=== PATIENT | male | born 1985 | race Caucasian/White ===

== ENCOUNTER 2024-09-19 22:31 | Inpatient (IN) | payer BC, SELFPAY ==
[2024-09-19 17:58] VITALS: BP 150/108
[2024-09-19 18:16] LABS: % Basophils 1.9 % (0-2); % Eosinophils 0.2 % (0-6); % Immature Granulocytes 3.8 % (0-0.5); % Lymphocytes 28.3 % (20.5-51.1); % Neutrophils 57.8 % (42.2-75.2); Absolute Basophils 0.1 10^3/uL (0-0.2); Absolute Immature Granulocytes 0.2 10^3/uL (0-0.05); Absolute Lymphocytes 1.7 10^3/uL (1.2-3.4); Absolute Monocytes 0.5 10^3/uL (0.1-0.6); Absolute Neutrophils 3.4 10^3/uL (1.4-6.5); Hematocrit 36.8 % (39.0-52.0); Hemoglobin 13.7 g/dL (13.0-18.0); Mean Corp Hgb Conc. 37.2 g/dL (33.0-37.0); Mean Corpuscular Hgb 34.2 pg (27.0-31.0); Mean Corpuscular Volume 91.8 fL (80.0-94.0); Mean Platelet Volume 12.3 fL (7.4-10.4); Nucleated Red Blood Cells % 0 % (-); Platelet Count 145 10^3/uL (130-400); Red Blood Cell Count 4.01 10^6/uL (4.70-6.10); Red Cell Dist. Width 17.4 % (11.5-14.5); White Blood Cell Count 5.9 10^3/uL (4.8-10.8)
--- NOTE | 2024-09-19 19:00 | ED.GENMED ---
History of Present Illness
General
Chief Complaint: Alcohol Problem
Time Seen by Provider: 09/19/24 19:00
History of Present Illness
History of Present Illness:
TIME OF INITIAL ENCOUNTER: 7 PM
HPI: I spoke to the mother and sister at bedside for most of the history. The patient has a history of alcoholism. He continues to drink. He works at [employer] and feels that he has been getting bullied there as well. He has been depressed. He
has not been eating or drinking well. He was supposed to see GI last month but did not see them because he had 'too much going on'. They say that they took him to the primary care doctor who did blood work who indicated that he had markedly high
triglycerides and LFTs. He was sent here for further workup. He did drink earlier today.
EXAM:
GENERAL: Short stature, appears somewhat weak, flat/depressed affect
HEENT: Dry oral mucosa, scleral icterus noted
CARDIOVASCULAR: No murmurs, normal heart rate, regular rhythm, No chest wall tenderness
PULMONARY: No respiratory distress, breath sounds are clear and equal
ABDOMEN: Soft with no peritoneal signs, no tenderness
NEUROLOGIC: Good strength all extremities, no coordination deficits
PSYCHIATRIC: Appropriate mental status, normal insight and judgement
EXTREMITIES: Nontender, no edema, moves all extremities equally
SKIN: No rash, no lesions
NUMBER AND COMPLEXITY OF PROBLEMS ADDRESSED AT THE ENCOUNTER
� Chronic conditions affecting care: Alcoholism, diverticular disease, GERD, anxiety/depression
� Acute Exacerbation and/or Progression of Chronic Illness: This is an acute problem
� Differential Diagnosis includes: GERD, alcoholism, alcoholic hepatitis/cirrhosis, impending alcohol withdrawal, pancreatitis
AMOUNT AND/OR COMPLEXITY OF DATA TO BE REVIEWED AND ANALYZED
� I performed an independent evaluation of and my interpretation is:
EKG:
CT:
X-rays:
Laboratory Studies: White count and hemoglobin normal, MCV 92
Other: Ultrasound shows fatty liver
� Review of other/old records: No old records available for review
� Clinical information was obtained by an independent historian: I spoke to the mother and sister at bedside who are very concerned
� Prescriptions/Medications Considered but not given:
� Further testing considered but not performed:
RISK OF COMPLICATIONS AND/OR MORBIDITY OR MORTALITY OF PATIENT MANAGEMENT
� Social determinants of health affecting care: Lives at home
� Discussion with other providers: Hospitalist, Dr. Canales for admission.
� Escalation of care including admission/observation vs risk of discharge considered: Poor po intake, alcoholism. Sister very concerned, took him to PMD, labs abnormal and sent here. On exam, scleral icterus, soft abd, no ascites
on exam. TBIli 7.8, AST 737, ALT 328, AP 328, TG >2625, Lipase 491, Cr 0.6, Na 131, INR pending, alcohol 321, MCV 92.
ANY OTHER UPDATES:
9:30 PM: I reassessed patient. No changes in his clinical condition. I did speak to sister discussed the lab work
Phy Exam
Physical Exam
Physical Exam:
See HPI
Scores
Withdrawal Assessment of Alcohol
Withdrawal Assessment Completed?: No
Course
Orders/Labs/Results
Orders:
Orders
09/19/24 18:06
Complete Blood Count/With Diff Urgent
09/19/24 19:10
Add On- LAB Urgent
Tests Added?: lipase AND alcohol AND lipid panel
0.9% Sodium Chloride 1000 ml [Nss] 1,000 ml IV BOLUS
Famotidine [Pepcid] 20 mg IV NOW STA
Pantoprazole [Protonix IV] 40 mg IV NOW STA
09/19/24 19:11
US Abdomen Complete/Upper Urgent
Comment:
Reason For Exam: jaundice
09/19/24 19:28
Alcohol Urgent
Cardiovascular Evaluation Urgent
Comprehensive Metabolic Panel Urgent
LDL Cholesterol, Direct Urgent
Lipase Urgent
09/19/24 20:56
Prothrombin Time Urgent
Abnormal Lab Results
09/19/24 09/19/24
18:06 19:28
RBC 4.01 L 10^6/uL
(4.70-6.10)
Hct 36.8 L %
(39.0-52.0)
MCH 34.2 H pg
(27.0-31.0)
MCHC 37.2 H g/dL
(33.0-37.0)
RDW 17.4 H %
(11.5-14.5)
MPV 12.3 H fL
(7.4-10.4)
Abs Immat Gran (auto) 0.2 H 10^3/uL
(0-0.05)
Immature Gran % 3.8 H %
(0-0.5)
Sodium 131 L mmol/L
(135-145)
Chloride 90 L mmol/L
(98-107)
Creatinine 0.6 L mg/dL
(0.7-1.3)
Glucose 120 H mg/dl
(70-99)
Calcium 7.5 L mg/dl
(8.4-10.2)
Total Bilirubin 7.8 H mg/dl
(0.2-1.3)
AST 737 H* U/L
(17-59)
ALT 328 H U/L
(0-50)
Alkaline Phosphatase 385 H U/L
(38-126)
Albumin 3.3 L g/dl
(3.5-5.0)
Triglycerides > 2625 H mg/dl
(10-149)
Total Cholesterol 309 H mg/dl
(50-199)
Lipase 491 H U/L
(23-300)
09/19/24 18:06
09/19/24 19:28
Vital Signs
Initial and Last Documented VS:
Initial Vital Signs
Temp Pulse Resp BP Pulse Ox
36.4 C 104 18 150/108 97
09/19/24 17:58 09/19/24 17:58 09/19/24 17:58 09/19/24 17:58 09/19/24 17:58
Last Documented Vital Signs
Temp Pulse Resp BP Pulse Ox
36.4 C 99 17 156/115 95
09/19/24 17:58 09/19/24 19:30 09/19/24 19:30 09/19/24 19:04 09/19/24 19:30
*Critical Care Note
Total Time (30-74mins, 75-104mins- exclusive of procedures): Not Applicable
ED Attending Note
-
Portions of this chart may have been created with voice recognition software.� Occasional wrong word or��sound alike� substitutions may have occurred due to the inherent limitations of voice recognition software.
Discharge Plan
Departure
Patient Disposition: Admit
Date of Disposition: 09/19/24
Time of Disposition: 20:56
Presentation/result/management discussed w/ accepting MD/DO: Hospitalist
Discharge Problem:
Acute alcoholic liver disease
Prescriptions:
No Action
famotidine 20 mg Tablet
20 mg PO BIDPRN PRN (Reason: gerd)
naproxen sodium [Aleve] 220 mg Tablet
440 mg PO BIDPRN PRN (Reason: mild pain)
Referrals:
Diane Grimes DO [Family Provider] -
Interventions
Interventions:
*Risk Screen - Suicide Last Done: 09/19/24 18:03
*General Assessment Last Done: 09/19/24 19:35
*Neglect/Abuse Screening Last Done: 09/19/24 18:03
*ED COVID-19 Vaccine History Last Done: 09/19/24 19:35
ED- Neurological Assessment Last Done: 09/19/24 19:35
ED-Psychological Assessment Last Done: 09/19/24 19:35
Discharge Date and Time
Print Language: JAPANESE
[2024-09-19 19:04] VITALS: BP 156/115
[2024-09-19] MEDS: PROTONIX IV 40 MG IV (19:29)
[2024-09-19] MEDS: NSS 1000 IV (19:30)
[2024-09-19] MEDS: PEPCID 20 MG IV (19:30)
[2024-09-19 19:34] VITALS: BMI 30.3
[2024-09-19 20:07] LABS: ALT (SGPT) 328 U/L (0-50); AST (SGOT) 737 U/L (17-59); Albumin 3.3 g/dl (3.5-5.0); Alkaline Phosphatase 385 U/L (38-126); Blood Urea Nitrogen 13 mg/dl (9-20); Calcium 7.5 mg/dl (8.4-10.2); Carbon Dioxide 28 mmol/L (22-30); Chloride 90 mmol/L (98-107); Estimated Creatinine Clearance 109 ml/min; Glucose 120 mg/dl (70-99); HDL Cholesterol 30 mg/dl; Potassium 4.2 mmol/L (3.5-5.1); Sodium 131 mmol/L (135-145); Total Bilirubin 7.8 mg/dl (0.2-1.3); Total Cholesterol 309 mg/dl (50-199); Total Protein 6.5 g/dl (6.3-8.2); eGFR > 60.00
[2024-09-19 20:18] LABS: Alcohol 321 mg/dl; Lipase 491 U/L (23-300)
[2024-09-19 20:42] LABS: Triglyceride > 2625 mg/dl (10-149)
[2024-09-19 21:00] VITALS: BP 140/95
[2024-09-19 21:10] LABS: LDL Cholesterol, Direct 74 mg/dl
[2024-09-19 21:12] LABS: INR 1.01; PT 13.8 Sec (11.4-14.6)
--- NOTE | 2024-09-19 21:53 | HPS.HSE ---
Family Physician
-
Family Physician: Diane Grimes
Chief Complaint
-
Chronic alcoholism
History of Present Illness
This is a 39-year-old male who denies any significant past medical history except for possible GERD presents to the emergency department from clinic with concern for alcoholic liver disease.
Patient reported that he was being seen in clinic for concern of indigestion. He reports he gets indigestion after meals with some bloating. He also reports chronic postnasal drip and coughing up of phlegm. Otherwise denies any other symptoms.
On that examination he had routine blood test which showed elevated liver enzymes. Patient is known to have significant alcohol intake. The patient is 4 foot 7 inches and weighs 60 kg. He drinks 5 shots of high proof liquor every night to help
him sleep. He reported that he tried to stop within the last year but had tremors and so continued drinking. He said he started drinking about 1 year ago. He denies any other recreational drug use. He denies any other past medical or past
surgical history. Denies any other complaints. He denies feeling dizzy lightheaded. He denies any confusion. He continues to work regularly. He denies any congenital diagnosis.
Corroborating history from family states that the patient has had recent 25 pound weight loss. He was diagnosed with bipolar in the distant past but has not been taking any medications. She states that he always has racing thoughts and has not
slept without alcohol for 3 days. Uses the alcohol to self medicate due to lack of sleep. Family history positive for diabetes in first-degree relatives.
In the emergency department he was afebrile, hypertensive at 150/100 pulse was 99 he was satting 98% on room air. CBC was unremarkable. Chemistries are notable for sodium of 131, otherwise he had elevated AST of 757 ALT of 320 and alk phos of 300.
His triglycerides were elevated to 65 with a lipase of 411. Right upper ultrasound shows hepatomegaly with diffuse fatty liver. No clear cirrhosis ductal dilatation or pancreatitis. There was no ascites.
Medical History
Past Medical History
Past Medical History: Reports Other (Alcohol dependence)
Past Surgical History: Reports Other (vasectomy)
Social History
Tobacco: Non-smoker
Alcohol: Chronic Alcoholic
Drug: None
Personal: Single
Living: With Family
Employment: Employed
Family History
Family History: Other (alcoholism)
Allergies / Home Medications
Allergies reflects when Allergies were last updated in [employer].
Home Medications with original date entered in [employer]
Allergy/Medication List:
Allergies
Allergy/AdvReac Type Severity Reaction Status Date / Time
No Known Allergies Allergy Unverified 09/19/24 18:02
Home Medications
famotidine 20 mg tablet 20 mg PO BIDPRN PRN gerd 09/19/24
naproxen sodium 220 mg tablet (Aleve) 440 mg PO BIDPRN PRN mild pain 09/19/24
Review of Systems
-
Unable to obtain full review of systems at this time due to: Dementia
History Source: Patient
Constitutional: Reports No Symptoms
EENT: Reports No Symptoms
Respiratory: Reports No Symptoms
Cardiac: Reports No Symptoms
Abdomen/GI: Reports Nausea
: Reports No Symptoms
Musculoskeletal: Reports No Symptoms
Skin: Reports No Symptoms
Neurological: Reports No Symptoms
Endocrine: Reports No Symptoms
Hematologic/Lymphatic: Reports No Symptoms
Psych: Reports No Symptoms
Physical Exam
Vital Signs
Vital Signs
Temp Pulse Resp BP Pulse Ox
97.5 F 99 17 156/115 95
09/19/24 17:58 09/19/24 19:30 09/19/24 19:30 09/19/24 19:04 09/19/24 19:30
Physical Exam
General: No Apparent Distress, Conversant and Other (small stature)
HEENT: NormoCephalic, Anicteric, Moist mucous membranes, Atraumatic and PERRLA
Respiratory: Clear
Cardiac: S1/S2 and Tachycardia
Breast: Deferred by me
GI: Soft, Non Tender, Non Distended and Normal Bowel Sounds
Rectal: Deferred by Provider
Genito-urinary: Deferred by me
Musculoskeletal: No Clubbing, No Cyanosis and No Edema
Skin: Warm
Neuro: AO x 3
Hematologic/Lymphatic: No Lymphadenopathy
Psych: Calm
Laboratory Results
-
09/19/24 18:06
09/19/24 19:28
Laboratory Results
PT 13.8 Sec (11.4-14.6) 09/19/24 20:56
INR 1.01 09/19/24 20:56
Total Bilirubin 7.8 mg/dl (0.2-1.3) H 09/19/24 19:28
AST 737 U/L (17-59) H* 09/19/24 19:28
ALT 328 U/L (0-50) H 09/19/24 19:28
Alkaline Phosphatase 385 U/L (38-126) H 09/19/24 19:28
Lipase 491 U/L (23-300) H 09/19/24 19:28
Data Reviewed
-
Ultrasound: Report Reviewed by me
Lab Data: Labs Reviewed by me
Old Records: Reviewed
Impression/Plan
-
IMPRESSION:
Patient sent in from outpatient clinic with abnormal LFTs. History of etoh intake (5-6 shots of liquor (high proof) every night for the last 1 year. He is not in acute withdrawal and has no acute symptoms.
PLAN:
Alcoholic hepatitis/fatty liver -patient likely with alcoholic hepatitis given LFT panel. However cannot rule out, contribution of fatty liver from hyperlipidemia. No diabetes and no history of diabetes. No fulminant liver failure based on
findings thus far. Tbili 7.8, INR 1.01. Discriminant index = 11. No cirrhosis or ascites. Hyponatremia.
- admit to ICU (q1hr fsg)
- trend lfts for now
- etoh withdrawal protocol
- thiamine/folate continue iv fluids
- clear liquid diet for now for likely pancreatitis
- no indication for acute steroids
- GI consultation
- case management for substance rehab
- psych consult
Pancreatitis w/ hypertriglyceridemia - subacute likely without abdominal pain. Multifactorial
- IV fluids, pain control, treat hpypertrig as below
- treatment as below
Hypertryglycerides - Marked hypertrygliceridemia. No diabetes. Likely etoh related.
- check a1c
- insulin gtt to keep trig < 600
- clear liquid diet for now but cessation of alcohol and dietary management critical
- hold statin due to elevated liver enzymes
GI consultation
DVT PPX - hep sq
Code status - full code
[2024-09-19 21:58] VITALS: BP 124/81
[2024-09-19 22:00] VITALS: BP 123/86
[2024-09-20] VITALS (28 sets, daily range): BP systolic 118–151; BP diastolic 81–119; BMI 30.2
[2024-09-20] MEDS: D5/0.9% with KCL 20 MEQ 1000 IV ×2 (02:57→07:30)
[2024-09-20 03:07] LABS: Glucose - Point of Care 120 mg/dl (70-99)
[2024-09-20 03:40] LABS: APTT 31.5 Sec (23.4-35.0)
[2024-09-20 03:45] LABS: Blood Urea Nitrogen 10 mg/dl (9-20); Calcium 7.1 mg/dl (8.4-10.2); Carbon Dioxide 22 mmol/L (22-30); Chloride 89 mmol/L (98-107); Estimated Creatinine Clearance 109 ml/min; Glucose 110 mg/dl (70-99); Lipase 570 U/L (23-300); Magnesium 1.4 mg/dl (1.6-2.3); Potassium 3.8 mmol/L (3.5-5.1); Sodium 127 mmol/L (135-145); eGFR > 60.00
[2024-09-20 04:14] LABS: Triglycerides > 2625 mg/dl (10-149)
[2024-09-20] MEDS: MAGNESIUM SULFATE 50 IV ×2 (04:37→07:38)
[2024-09-20] MEDS: CALCIUM GLUCONATE 130 MG IV (04:37)
[2024-09-20 04:54] LABS: Glucose - Point of Care 159 mg/dl (70-99)
[2024-09-20 05:48] LABS: Glucose - Point of Care 153 mg/dl (70-99)
--- NOTE | 2024-09-20 06:30 | PTCARENOTE ---
Pt received from ED to ICU room 3366, accompanied by sister. Ox3, pleasant, appears to be withdrawn. MSAS 2-3. Steady gait with transfers. NSR, trace LE, pulses palpable. RA, breath sounds clear t/o. +bowel sounds, no BM. Clear yellow/sanjay urine.
Sclera appears slightly jaundice. IVF infusing as ordered, insulin gtt ordered to start after BG >180. Safe environment maintained, call jaquez within reach, pt repositioning self.
[2024-09-20] MEDS: ATIVAN 1 MG IV ×2 (06:38→13:58)
[2024-09-20 06:45] LABS: Glucose - Point of Care 154 mg/dl (70-99)
--- NOTE | 2024-09-20 07:16 | CON.INTV ---
Consultation
Consultation Request
Date/Time Consultation Requested: 09/20/24
Date/Time Consultation Performed: 09/20/24
Performing Provider: Teofilo
Reason for Consultation: ICU
Medical History
-
History of Present Illness:
This is a 39-year-old male w/ history of GERD, bipolar disorder not treated presents to the emergency department from clinic with concern for alcoholic liver disease. Has been complaining of indigestion, bloating, cough, weight loss of 25lbs.
Had routine OP blood test which showed elevated liver enzymes. Patient is known to have significant alcohol intake, reportedly drinks 5 shots of high proof liquor every night to help him sleep. He reported that he tried to stop within the last
year but had tremors and so continued drinking. He said he started drinking about 1 year ago. He denies any other recreational drug use.
In the emergency department, patient is hemodynamically stable. Right upper ultrasound shows hepatomegaly with diffuse fatty liver w/o clear cirrhosis, ductal dilatation, pancreatitis, ascites.
Admitted to ICU for frequent blood work for suspected alcoholic hepatitis.
Past Medical History
Past Medical History: Other (see list below)
Social History
Tobacco: Non-smoker
Alcohol: Daily
Drug: None
Family History
Family History: Reviewed & Not Pertinent
Allergies / Home Medications
Allergies
Allergy/AdvReac Type Severity Reaction Status Date / Time
No Known Allergies Allergy Unverified 09/19/24 18:02
Home Medications
�Medication �Instructions �Recorded �Confirmed �Last Taken �Type
famotidine 20 mg tablet 20 mg PO BIDPRN PRN gerd 09/19/24 09/19/24 09/19/24 History
naproxen sodium 220 mg tablet 440 mg PO BIDPRN PRN mild pain 09/19/24 09/19/24 09/19/24 History
(Aleve)
Review of Systems
-
History Source: Patient
All other systems: Negative unless noted
Vitals / Labs / Diagnostic Testing
Vital Signs
Temp Pulse Resp BP Pulse Ox
97.8 F 105 21 151/104 97
09/20/24 01:06 09/20/24 06:30 09/20/24 06:30 09/20/24 06:00 09/20/24 06:30
Lab Data
09/19/24 18:06
Laboratory Results
09/19/24 09/20/24
20:56 03:15
PT 13.8
INR 1.01
APTT 31.5
Diagnostic Testing:
Physical Exam
-
HEENT: Normocephalic, Anicteric and Moist Mucous Membranes
Cardiovascular: S1/S2 and Regular Rhythm
Respiratory: Clear and Non-Labored Respirations
GI: Soft, Non Distended and Non Tender
Neurology: Awake, Alert, Oriented and No Motor Deficits
Skin: Warm, Dry and Good Color
General: Comfortable and Other (NAD)
Assessment
-
This is a 39-year-old male w/ history of GERD, bipolar disorder not treated presents to the emergency department from clinic with concern for alcoholic liver disease. Has been complaining of indigestion, bloating, cough, weight loss of 25lbs. Had
routine OP blood test which showed elevated liver enzymes. Patient is known to have significant alcohol intake, reportedly drinks 5 shots of high proof liquor every night to help him sleep. He reported that he tried to stop within the last year
but had tremors and so continued drinking. He said he started drinking about 1 year ago. He denies any other recreational drug use. In the emergency department, patient is hemodynamically stable. Right upper ultrasound shows hepatomegaly with
diffuse fatty liver w/o clear cirrhosis, ductal dilatation, pancreatitis, ascites. Admitted to ICU for frequent blood work for suspected alcoholic hepatitis.
Acute alcoholic hepatitis
Hypertriglyceridemia
Possible pancreatitis, elevated lipase but not otherwise noted on imaging
Indigestion, bloating
Subacute cough
Weight loss 25 pounds
Chronic alcohol abuse, 5 drinks per day
At risk for ETOH w/d
Conditions present prior to admission
GERD
Bipolar disorder, untreated
Insomnia
Obesity
Chronic alcohol abuse
Intellectual disability history
Plan
No current signs of metabolic encephalopathy or MS changes/following commands
Psychiatric history noted above including possible bipolar d/o
ETOH abuse noted, on MSAS
Psych eval
Denies pain at this time.
Pain/sedation: add phenobarb taper as he is high risk for w/d
RASS goals: 0
Hemodynamically stable, not requiring pressors.
Cardiac history reviewed--none
ST issue could be related to w/d, dehydration, on IVFs
No prior ECHO for review, can obtain new study
Monitor on telemetry
Oxygen needs: stable on RA
Prior history of lung disease: none, nonsmoker
Supplemental O2 as indicated to maintain sats > 89%
No prior chest imaging, can obtain baseline if symptoms develop
NPO, resume diet when able
At risk for pancreatitis given high TG but not having symptoms/imaging not indicative
Will f/u with CT AP
Continue IVFs, trend LFTs/lipase/TGs
GI eval
Aspiration precautions, HOB > 30 degrees
GI prophylaxis--add H2B given h/o GERD
Creat at baseline, no history of renal disease
Void trials
Follow urine output, critical I/Os
Replete electrolytes as needed
No signs/symptoms suspicious for infectious etiology at this time
Observe off antibiotics for now
Follow fever trend, WBC count
CBC stable, no signs of bleeding or coagulopathy.
DVT prophylaxis as assessed based on risk, including mechanical SCDs
Can transfuse if indicated for Hb <7, plt < 10
INR 1.01
No prior h/o diabetes or thyroid disease
Monitor accuchecks PRN/SS coverage if needed
HbA1c 5.8
Can transfer to floors if doing well today.
Diagnostic Data
Chest X-Ray:
CT Scan:
RUQ US 09/20/24- Hepatomegaly with diffuse fatty infiltration of the liver
Echo:
PFT's:
Reports and relevant images were personally reviewed.
Critical Care time 75 mins -- The patient is admitted for acute critical illness for the treatment of vital organ failure and/or prevention of further life-threatening conditions. Total care includes time spent in review of history, physical exam,
medications, hemodynamic/ventilator parameters, laboratory data, imaging and discussion with house staff, pharmacy, respiratory therapy, line out worker, and nursing. Additional time spent in review of residents plan of care.
[2024-09-20] MEDS: THIAMINE INJECTION 200 MG IV ×2 (07:29→19:34)
[2024-09-20] MEDS: FOLVITE 1 MG PO (07:29)
[2024-09-20] MEDS: HEPARIN 5000 UNITS SC (07:29)
[2024-09-20] MEDS: TRICOR 145 MG PO (07:38)
[2024-09-20 07:55] LABS: Glucose - Point of Care 178 mg/dl (70-99)
--- NOTE | 2024-09-20 08:36 | PTCARENOTE ---
Pt received at 0700, A&Ox3, appears to be withdrawn. MSAS 1-2. Steady gait with transfers. NSR/ST, trace LE, pulses palpable. RA, breath sounds clear t/o. +bowel sounds, no BM. Sclera reported to be slightly jaundice. IVF infusing as ordered,
insulin gtt ordered to start after BG >180. Safe environment maintained, call jaquez within reach, pt repositioning self.
[2024-09-20 09:11] LABS: Glycohemoglobin (HgbA1c) 5.8 % (4.0-5.6)
[2024-09-20 09:44] LABS: Glucose - Point of Care 140 mg/dl (70-99)
--- NOTE | 2024-09-20 10:13 | W.PN.HOSP.TC ---
Today's Communication/Plan
-
See PN
Assessment / Plan
Assessment / Plan
39yo M with PMHx of alcohol abuse brought by his family 2/2 concern for elevated LFT and triglicerides on outpatient blood test. Managed for alcohol withdrawal and acute alcoholic pancreatitis
A/P:
#Acute alcoholic pancreatitis
#Triglyceridemia 2/2 alcohol intake
#Bilirubinemia
#Transaminitis 2/2 acute alcoholic pancreatitis
#Elevated alk.phos 2/2 acute alcoholic pancreatitis
No gall stones on US, CBD WNL
Insulin drip, fenofibrate, low fat diet. serial triglycerides
Counceled on alcohol cessation
IVF
GI consult
MELD 3.0 on admission - 18
follow LFT
CM for [facility]ARES
#Hypocalcemia
#Hyponatremia
#hypomagnesemia
2/2 poor oral intake
hydrate
serial electrolytes, replete as needed
#Alcohol abuse with withdrawal
thiamine/folate
phenobarb taper
MSAS protocol
watch for DT
DVT ppx hep
Full code
I have spent at least 59min reviewing the chart, test results, communication with consultants and direct patient care
Anticipated Discharge: > 48 hours
Subjective/Interval History
-
Date of Service: September 20, 2024
Objective Data
-
Labs:
Laboratory Results
09/20/24 09/20/24 09/20/24
02:52 03:15 07:27
APTT 31.5
Sodium 127 L Cancelled
Potassium 3.8 Cancelled
Chloride 89 L Cancelled
Carbon Dioxide 22 Cancelled
BUN 10 Cancelled
Creatinine 0.6 L Cancelled
Glucose 110 H Cancelled
Calcium 7.1 L Cancelled
Total Bilirubin Cancelled
AST Cancelled
ALT Cancelled
Alkaline Phosphatase Cancelled
09/20/24 09/20/24 09/20/24
08:32 09:20 12:00
APTT
Sodium Cancelled Pending Pending
Potassium Cancelled Pending Pending
Chloride Cancelled Pending Pending
Carbon Dioxide Cancelled Pending Pending
BUN Cancelled Pending Pending
Creatinine Cancelled Pending Pending
Glucose Cancelled Pending Pending
Calcium Cancelled Pending Pending
Total Bilirubin Cancelled Pending
AST Cancelled Pending
ALT Cancelled Pending
Alkaline Phosphatase Cancelled Pending
09/20/24 09/20/24
16:00 20:00
APTT
Sodium Pending Pending
Potassium Pending Pending
Chloride Pending Pending
Carbon Dioxide Pending Pending
BUN Pending Pending
Creatinine Pending Pending
Glucose Pending Pending
Calcium Pending Pending
Total Bilirubin
AST
ALT
Alkaline Phosphatase
Vital Signs:
Vital Signs
Temp Pulse Resp BP Pulse Ox
98.4 F 105 21 151/104 96
09/20/24 06:00 09/20/24 06:30 09/20/24 06:30 09/20/24 06:00 09/20/24 08:16
I&O
09/19/24 09/20/24 09/21/24
06:59 06:59 06:59
Intake Total 1050 / 1050
Output Total 450 / 450
Balance 600 / 600
Review of Systems
-
History Source: Patient
All other systems: Reviewed and negative
Physical Exam
-
General: Comfortable and Conversant
HEENT: Normocephalic and Other (yellow conjuctiva)
Respiratory: Clear to Auscultation
Cardiac: Regular Rhythm and Tachycardic
GI: Soft, Nontender and Nondistended
Musculoskeletal: No Clubbing, No Cyanosis and No Edema
Skin: Jaundice
Neuro: Awake, Alert, Oriented, AO x 3 and Tremors
Psych: Calm
--- NOTE | 2024-09-20 10:23 | CON.GI ---
Addendum entered and electronically signed by Emily Herndon MD 09/20/24 18:17:
I saw and examined the patient.
The SHARPLES MACHINE OPERATOR or PA's note was reviewed and I agree with the note.
Comment:39-year-old male with history of alcohol abuse, bipolar disorder, recent diverticulitis April 2024, who currently is living with his sister presenting with nausea and vomiting episodes which is going on for several months now but more so
recently and poor p.o. intake. Denies any abdominal pain, trouble swallowing but reports globus sensation. As per sister last about 25 pounds in the last few months. He does have GI at [facility] who did colonoscopy after his diverticulitis
episode in April 2024 and reports being negative. EGD not done at that time.
Significant alcohol use with at least 5 shots of alcohol daily.
On exam, tachycardic and hypertensive suggesting possible DTs.
Labs show hyponatremia, hypokalemia and LFTs showing elevated total bilirubin at 8.7, AST of 737, ALT of 328 and alk phos of 385 with triglycerides more than 2500. Lipase of 491. Blood alcohol level of 321 on admission.
Abdominal ultrasound showing diffuse fatty liver with hepatomegaly and subsequent CT scan also showing mild stranding of the retroperitoneal fat adjacent to the pancreatic tail and severe fatty infiltration of the liver.
-History of alcohol abuse currently being treated for DTs
Continue management of DTs per medical team/psychiatry
Discriminant function of 13 today
Will continue to monitor LFTs
Agree with continuing PPI with history of recurrent vomiting, okay for clear liquid diet and advance as tolerated.
-Mild elevation in lipase and CT showing mild stranding adjacent to the pancreatic tail
Significant elevation in triglycerides
This is risk factor for pancreatitis apart from his underlying alcohol abuse.
Need management of triglyceride levels as well.
-Hyponatremia, hypokalemia
Currently getting hypertonic saline per nephrology.
-Discussed with patient and sister regarding following up with psychiatry for his bipolar disorder and alcohol abuse
-After discharge, he will need follow-up with outpatient GI at [facility].
Original Note:
Consultation
-
Date/Time Consultation Requested: 09/20/24214
Date/Time Consultation Performed: 09/20/24 1130
Requesting Provider: Davina Canales MD
Performing Provider: TONY French, Emiyl Herndon MD
Reason for Consultation: ETOH abuse, increased LFT's
Medical History
Chief Complaint / HPI
Chief Complaint: abdominal pain with vomiting
History of Present Illness:
Pt is a 39yo with hx alcohol dependency, GERD, diverticulitis, colon polyps, and bipolar disorder. In review with patient and sister patient is noted with special needs and some learning disability. He with prior admission [facility] for psych
care about 8 years ago. He followed with a therapist but when then therapist left he did not transition to new provider. 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 He would come home from work and
drink several shot to try to sleep. He has been getting some care from PCP with attempt to take Trazadone for sleep but has had a difficulty time finding psych provider in network. He has also had ongoing GI issues with initial diverticulitis
several months ago. He did have follow up colonoscopy at [facility] with Kendall with noted polyp. Per family also concern for increased ETOH use and depression. He has been sleeping a lot and actually took leave of absence in Mid August with
stress. He admits to ETOH use day prior to admission. Family also concerned for issue with nausea, dysphagia with feeling of . increased phlegm in throat and vomiting that seem to be getting worse. Sister did schedule OP GI follow up but pt did
not go to visit. Pt has had 25 lbs wt loss in last few months.
Pt does currently deny odynophagia, hematemesis, abdominal pain, diarrhea, constipation or rectal bleeding. On admission hbg 13,7, platelets 145, Na 131, glucose 120 with hbgA1c 5.8, bili 8.7, AST 737, ALT 328, alk phos 385, albumin 3.3,
triglycerides >2625, and lipase 491. Pt is also noted with tachycardia with concern for ETOH withdrawal with ETOH level 321 on admission. 09/19 US Hepatomegaly with diffuse fatty infiltration of the liver. + PRN Naproxen with occasional use for
hip pain.
Past Medical History
Past Medical History: GERD, Psychiatric (bipolar disorder with hx depression ) and Other (ETOH dependence, hypertrigylceridemia, diverticulitis, colon polyps )
Past Surgical History: Other (vastectomy)
Social History
Tobacco: Non-Smoker
Alcohol: Daily (multiple shots daily)
Drug: None
Living: With Family
Employment: Employed (but currently out on disability )
Family History
Family History: Other (father with kidney CA no family hx colon CA)
Allergies / Home Medications
Allergy/AdvReac Type Severity Reaction Status Date / Time
No Known Allergies Allergy Unverified 09/19/24 18:02
�Medication �Instructions �Recorded
famotidine 20 mg tablet 20 mg PO BIDPRN PRN gerd 09/19/24
naproxen sodium 220 mg tablet 440 mg PO BIDPRN PRN mild pain 09/19/24
(Aleve)
Review of Systems
-
History Source: Patient
Constitutional: Reports Weight Loss, Fatigue and Sleep Disturbance
EENT: Reports No Symptoms
Respiratory: Reports No Symptoms
Abdomen/GI: Reports Abdominal Pain, Nausea, Vomiting and Other (dysphagia )
: Reports No Symptoms
Musculoskeletal: Reports No Symptoms
Skin: Reports No Symptoms
Neurological: Reports Weakness
Endocrine: Reports No Symptoms
Hematologic/Lymphatic: Reports No Symptoms
Vital Signs
Temp Pulse Resp BP Pulse Ox
98.4 F 105 21 151/104 96
09/20/24 06:00 09/20/24 06:30 09/20/24 06:30 09/20/24 06:00 09/20/24 08:16
Physical Exam
Exam
General: Other (short stature noted lying in bed with some withdrawn behavior but does answer some questions and occasional small amount of mucous emesis )
HEENT: Normocephalic and Anicteric
Respiratory: Clear
Cardiac: Other (tachy )
GI: Soft, Non Distended and Tender
Musculoskeletal: No Clubbing
Skin: Warm and Dry
Neuro: Awake, Alert and AO x 3
Psych: Calm
Results
WBC 5.9 10^3/uL (4.8-10.8) 09/19/24 18:06
Hgb 13.7 g/dL (13.0-18.0) 09/19/24 18:06
Hct 36.8 % (39.0-52.0) L 09/19/24 18:06
MCV 91.8 fL (80.0-94.0) 09/19/24 18:06
Plt Count 145 10^3/uL (130-400) 09/19/24 18:06
Absolute Neuts (auto) 3.4 10^3/uL (1.4-6.5) 09/19/24 18:06
PT 13.8 Sec (11.4-14.6) 09/19/24 20:56
INR 1.01 09/19/24 20:56
APTT 31.5 Sec (23.4-35.0) 09/20/24 03:15
Sodium Cancelled 09/20/24 08:32
Potassium Cancelled 09/20/24 08:32
Chloride Cancelled 09/20/24 08:32
Carbon Dioxide Cancelled 09/20/24 08:32
BUN Cancelled 09/20/24 08:32
Creatinine Cancelled 09/20/24 08:32
Calcium Cancelled 09/20/24 08:32
Total Bilirubin Cancelled 09/20/24 08:32
AST Cancelled 09/20/24 08:32
ALT Cancelled 09/20/24 08:32
Alkaline Phosphatase Cancelled 09/20/24 08:32
Lipase 570 U/L (23-300) H 09/20/24 02:52
Diagnostic Image Results:
09/19/24 US abdomen
IMPRESSION: Hepatomegaly with diffuse fatty infiltration of the liver
Prior GI Procedures:
EGD: none
Colonoscopy: recent with colon polyps s/p colonoscopy
Assessment / Plan
-
Pt is a 39yo with hx alcohol dependency, GERD, diverticulitis, colon polyps, and bipolar disorder. In review with patient and sister patient is noted with special needs and some learning disability. He with prior admission to [facility] for
psych care about 8 years ago. He followed with a therapist but when then therapist left he did not transition to new provider. 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
work and drink several shot to try to sleep. He has been getting some care from PCP with attempt to take Trazadone for sleep but has had a difficulty time finding psych provider in network. He has also had ongoing GI issues with initial
diverticulitis several months ago. He did have follow up colonoscopy at [facility] with Kendall with noted polyp. Per family also concern for increased ETOH use and depression. He has been sleeping a lot and actually took leave of absence in Mid
August with stress. He admits to ETOH use day prior to admission. Family also concerned for issue with nausea, dysphagia with feeling of . increased phlegm in throat and vomiting that seem to be getting worse. Sister did schedule OP GI follow
up but pt did not go to visit. Pt has had 25 lbs wt loss in last few months. On admission hbg 13,7, platelets 145, Na 131, glucose 120 with hbgA1c 5.8, bili 8.7, AST 737, ALT 328, alk phos 385, albumin 3.3, triglycerides >2625, and lipase 491.
Pt is also noted with tachycardia with concern for ETOH withdrawal with ETOH level 321 on admission. 09/19 US Hepatomegaly with diffuse fatty infiltration of the liver. + PRN Naproxen with occasional use for hip pain.
-ETOH abuse
-ETOH withdrawal
-nausea/vomiting with globus sensation
-elevated LFT's
-elevated lipase
-hyponatremia
-hypocalcemia/hypomagnesemia
-hypertriglyceridemia
-fatty liver per imaging
-recent diverticulitis with follow up colonoscopy with polyps
-depression hx bipolar disorder
-GERD
PLAN:
Etiology of symptoms with current concern for ETOH withdrawal with daily up until admission
cont withdrawal protocol per medical team
counseled on need to quit
agree with CT for further eval of pancreas and vomiting
discussed with pt and family eventual need for EGD but not current candidate with active withdrawal in absence of Bleeding and instability
trend LFT's with elevated lipase likely ETOH hepatitis/pancreatitis but marked elevated triglycerides
DF 11.5 based on admission labs no role for steroids - repeat in AM to ensure stability
cont rx per medical team for hypertriglyceridemia
cont PPI
cont electrolyte replacement
cont IVF 150ml/hr
ok for clear diet advance as tolerated
agree with psych eval and stressed need for continued OP care
OP follow up with Dr. Argueta at [facility] his primary GI MD
-
-
Thank you for consultation and allowing me to participate in the patient's care. Please call the dynamics ax solution architect GI physician during the after hours with any questions or concerns.
[2024-09-20 10:27] LABS: ALT (SGPT) 279 U/L (0-50); AST (SGOT) 742 U/L (17-59); Albumin 2.8 g/dl (3.5-5.0); Alkaline Phosphatase 340 U/L (38-126); Blood Urea Nitrogen 6 mg/dl (9-20); Calcium 7.4 mg/dl (8.4-10.2); Carbon Dioxide 22 mmol/L (22-30); Chloride 91 mmol/L (98-107); Direct Bilirubin 7.1 mg/dl (0.0-0.4); Estimated Creatinine Clearance 109 ml/min; Glucose 130 mg/dl (70-99); Magnesium 2.8 mg/dl (1.6-2.3); Potassium 4.2 mmol/L (3.5-5.1); Sodium 127 mmol/L (135-145); Total Bilirubin 8.5 mg/dl (0.2-1.3); Total Protein 5.6 g/dl (6.3-8.2); eGFR > 60.00
[2024-09-20] MEDS: PHENOBARBITAL 65 MG IV ×3 (10:29→22:36)
[2024-09-20] MEDS: NSS 1000 IV (11:06)
[2024-09-20] MEDS: OMNIPAQUE 50 ML PO (11:16)
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
[2024-09-20 11:55] LABS: Triglycerides > 2625 mg/dl (10-149)
--- NOTE | 2024-09-20 12:00 | PTCARENOTE ---
Pt resting comfortably. Trending labs. MSAS 1
[2024-09-20] MEDS: CALCIUM GLUCONATE 100 IV (12:56)
--- NOTE | 2024-09-20 14:00 | PTCARENOTE ---
MSAS 8, ativan 1mg given. Sister at bedside
[2024-09-20 14:27] LABS: Amphetamines Negative (Negative); Barbiturates Negative (Negative); Benzodiazepines Positive (Negative); Buprenorphine Negative (Negative); Cocaine Negative (Negative); Marijuana Negative (Negative); Methadone Negative (Negative); Methamphetamines Negative (Negative); Opiates Negative (Negative); Phencyclidine Negative (Negative); Tricyclic Antidepressants Negative (Negative)
[2024-09-20 14:38] LABS: Urine Sodium 152 mmol/L (30-90)
[2024-09-20 14:46] LABS: Fentanyl, Urine Negative (Negative)
[2024-09-20 14:55] LABS: Osmolality Urine 436 mOsm/kg (300-900)
[2024-09-20 15:35] LABS: Urine Albumin Negative (Neg - Trace); Urine Bilirubin 1+ (Negative); Urine Character Clear (Clear); Urine Color Yellow; Urine Glucose Negative (Negative); Urine Ketone Negative (Negative); Urine Leukocyte Negative (Negative); Urine Nitrite Negative (Negative); Urine Occult Blood Negative (Negative); Urine Specific Gravity 1.015 (<1.030); Urine Urobilinogen 1+ (Neg - 1+); Urine pH 6.5 (5.0-9.0)
--- NOTE | 2024-09-20 15:56 | CON.INTV ---
Consultation
Consultation Request
Date/Time Consultation Requested: 09/20/2024, 2:42
Date/Time Consultation Performed: 09/20/2024 8:00
Requesting Provider: Leo Redmond CRNP
Performing Provider: Dr. Nataliya Red
Reason for Consultation: Alcoholic Hepatitis/ fatty liver/ hypertriglyceridemia
Medical History
-
History of Present Illness:
Pt is a 39yo with past medical history of GERD, untreated bipolar disorder, alcohol use disorder. He currently drinks 5 shots a day of hard liquor every single day and has been doing so for the past couple of years. His family is concerned with his
increased usage of alcohol use and what he describes as being depressed. The last drink he had was the day before his admission. Pt has had 25 lbs wt loss in last 3-4 months. He went to his primary care doctor who informed him his lab results
showed increased triglycerides and elevated transaminases, then informed him to present to the ED. Labs on admission: hbg 13,7, platelets 145, Na 131, glucose 120 with hbgA1c 5.8, bili 8.7, AST 737, ALT 328, alk phos 385, albumin 3.3, triglycerides
>2625, and lipase 491. ETOH level 321 on admission.Right upper ultrasound shows hepatomegaly with diffuse fatty liver w/o clear cirrhosis, ductal dilatation, pancreatitis, ascites. Patient was started on MSAS protocol, and then transferred to the
ICU because of concern of hypertriglyceridemia and possible alcoholic hepatitis.
Past Medical History
Past Medical History: GERD and Psychiatric (Depression, Bipolar untreated, intellectual disability, chronic alcohol abuse, insomnia)
Past Surgical History: None (Vasectomy)
Social History
Tobacco: Non-smoker
Alcohol: Daily
Drug: None
Personal: Single
Living: With Family
Employment: Employed
Family History
Family History: Reviewed & Not Pertinent
Allergies / Home Medications
Allergies
Allergy/AdvReac Type Severity Reaction Status Date / Time
No Known Allergies Allergy Unverified 09/19/24 18:02
Home Medications
�Medication �Instructions �Recorded �Confirmed �Last Taken �Type
famotidine 20 mg tablet 20 mg PO BIDPRN PRN gerd 09/19/24 09/19/24 09/19/24 History
naproxen sodium 220 mg tablet 440 mg PO BIDPRN PRN mild pain 09/19/24 09/19/24 09/19/24 History
(Aleve)
Review of Systems
-
History Source: Patient and Family
Constitutional: Fever (Negative), Weight Loss, Fatigue, Sleep Disturbance and Chills (None)
Respiratory: Cough (Negative)
Cardiac: Chest Pain (Negative), Diaphoresis (Negative) and Palpitations (Negative)
Abdomen/GI: Abdominal Pain (Negative), Nausea (Negative), Vomiting (Negative), Diarrhea (Negative) and Constipated (Negative)
: Frequency (Negative)
Musculoskeletal: Joint Pain (Negative)
Neuro: Dizzy (Negative) and Headache (Negative)
Vitals / Labs / Diagnostic Testing
Vital Signs
Temp Pulse Resp BP Pulse Ox
97.3 F 99 21 138/91 99
09/20/24 11:45 09/20/24 11:30 09/20/24 11:30 09/20/24 11:02 09/20/24 11:30
Lab Data
09/19/24 18:06
09/20/24 20:00
Laboratory Results
09/19/24 09/20/24
20:56 03:15
PT 13.8
INR 1.01
APTT 31.5
Diagnostic Testing:
Physical Exam
-
Cardiovascular: S1/S2, Regular Rhythm and Other (Tachycardic)
Respiratory: Clear
GI: Soft, Non Distended, Non Tender and Normal Bowel Sounds
Neurology: Awake, Alert, Oriented and AO x 3
Skin: Warm and Dry
Assessment
-
Patient is a 39-year-old male with a past medical history of GERD, insomnia, chronic alcohol abuse, insomnia, depression, untreated bipolar disorder that presents to the ICU for possible concerns of alcoholic hepatitis, hypertriglyceridemia. He is
currently on Msas protocol, fenofibrate, IV fluids, currently monitoring for symptoms of alcohol withdrawal and symptoms of alcohol hepatitis.
Neuro:
-Neuroexam is normal patient is not exhibiting any signs of anxiety, shaking, seizures
- RASS score is 0
- MSAS score is 1
- Consult psychiatry because patient has history of depression and bipolar untreated
- Continue his MSAS protocol to prevent Wernicke Korsakoff and neurological withdrawal symptoms such as anxiety, shaking, seizures, delirium tremens
- Continue to monitor for hemodynamic instability
Cardiovascular:
- patient has no previous cardiac history
- Pertinent findings on exam were tachycardia
- Ordered an echo because of his prolonged history of alcohol use, to structural aspect of heart, left ventricular ejection fraction, systolic and diastolic filling patterns
- Continue to monitor blood pressure and heart rate on telemetry
Respiratory:
- No previous respiratory history
- Lung exam was clear to auscultation
- is on room air and is saturating 99%
GI:
- Patient is on clear liquid diet, continue to observe
- Patient should be placed on famotidine 20 mg for GI prophylaxes because of weight loss, history of naproxen use, alcohol use, and previous history of GERD
- Consult gastroenterology
- Continue to trend his transaminases and lipase levels
- Continue on Fibrate to decrease triglyceride level and trend levels
Renal:
- Creatinine is slightly decreased at 0.6, continue to observe, probably an indication of decreased muscle mass
- His sodium level is 127, continue IV fluids 0.9 NACl, and continue to trend the sodium, most likely hypovolemic hyponatremic
- Potassium is 4.2 and normal, continue to trend
- Magnesium is decreased and levels are repleted, continue to trend
ID:
- No fever, WBC count is 5.9 and normal, patient is afebrile
Heme-onc:
- DVT prophylaxes is lovenox 40
- No evidence of macrocytic anemia, Hgb is 13.7 and MCV is 91.8 and normal
- Platelet count is 145 and normal, continue to observe the platelet count.
Endocrine:
- No previous history of diabetes, added a hemoglobin A1c as add on to his labs today
- Ordered a tsh to determine thyroid function
Data Reviewed
-
Ultrasound: Report reviewed by me and Discussed with Physician
Medical Tests (Nuc Med, Echo etc): Report reviewed by me and Discussed with Physician
Labs: Labs reviewed by me and Discussed with Physician
[2024-09-20 16:10] LABS: Albumin 2.8 g/dl (3.5-5.0); Alkaline Phosphatase 377 U/L (38-126); Blood Urea Nitrogen 4 mg/dl (9-20); Calcium 7.8 mg/dl (8.4-10.2); Carbon Dioxide 17 mmol/L (22-30); Chloride 89 mmol/L (98-107); Estimated Creatinine Clearance 109 ml/min; Glucose 207 mg/dl (70-99); Potassium 3.4 mmol/L (3.5-5.1); Sodium 122 mmol/L (135-145); Total Bilirubin 9.4 mg/dl (0.2-1.3); Total Protein 5.6 g/dl (6.3-8.2); eGFR > 60.00
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
[2024-09-20 16:28] LABS: AST (SGOT) 813 U/L (17-59)
[2024-09-20 16:29] LABS: ALT (SGPT) 283 U/L (0-50); Lipase 579 U/L (23-300)
--- NOTE | 2024-09-20 16:36 | W.PN.UPDATE ---
Update Note
Progress Note Update
Challenging situation with possible mild pancreatitis on CT, elevated lipase, triglyceridemia and now significant hyponatremia after IVF. Started 3%NS with FR as discussed with nephrology to correct hyponatremia. will follow q4h BMP
[2024-09-20] MEDS: SODIUM CHLORIDE 3% 250 IV (16:56)
--- NOTE | 2024-09-20 17:00 | W.CON.NEPH ---
Consultation
-
Date/Time Consultation Requested: September 20, 2024 4 PM
Date/Time Consultation Performed: September 20, 2024 5 PM
Requesting Provider: Dr. Longoria
Performing Provider: Dr. Strange
Reason for Consultation: Hyponatremia
Medical History
-
Chief Complaint: Alcoholism
History of Present Illness:
This is a 39-year-old gentleman who has alcoholism which started about 1 year ago. He was brought in because of concern that his alcoholism was worsening. He was having indigestion bloating. He was also noted to have a 25 pound weight loss over
time. His sodium was slightly low at the time of admission but over the next several days his sodium has now fallen to 122 and we are asked to assist with management of the hyponatremia. He also has significantly elevated triglyceride levels as
well as elevated LFTs.
Past Medical History
Alcoholism
Vasectomy
Social History
Tobacco: Non-Smoker
Alcohol: Chronic Alcoholic
Family History
Family History: Not Pertinent
Allergies / Home Medications
Allergy/AdvReac Type Severity Reaction Status Date / Time
No Known Allergies Allergy Unverified 09/19/24 18:02
�Medication �Instructions �Recorded �Confirmed �Type
famotidine 20 mg tablet 20 mg PO BIDPRN PRN gerd 09/19/24 09/19/24 History
naproxen sodium 220 mg tablet 440 mg PO BIDPRN PRN mild pain 09/19/24 09/19/24 History
(Aleve)
Review of Systems
-
Mild indigestion
All other systems: Negative unless noted
Physical Exam
Vital Signs
Vital Signs
Temp Pulse Resp BP Pulse Ox
97.3 F 99 21 138/91 99
09/20/24 11:45 09/20/24 11:30 09/20/24 11:30 09/20/24 11:02 09/20/24 11:30
Lab Results
WBC 5.9 10^3/uL (4.8-10.8) 09/19/24 18:06
RBC 4.01 10^6/uL (4.70-6.10) L 09/19/24 18:06
Hgb 13.7 g/dL (13.0-18.0) 09/19/24 18:06
Hct 36.8 % (39.0-52.0) L 09/19/24 18:06
Plt Count 145 10^3/uL (130-400) 09/19/24 18:06
eGFR Cancelled 09/20/24 20:00
Phosphorus 3.0 mg/dl (2.5-4.5) 09/20/24 02:52
Albumin 2.8 g/dl (3.5-5.0) L 09/20/24 15:43
Laboratory Tests
09/19/24 09/20/24 09/20/24
19:28 09:20 13:54
Sodium 131 L 127 L
Total Bilirubin
AST
ALT
Albumin
Triglycerides
Urine Osmolality 436
Urine Creatinine 48.400
Urine Sodium 152 H
09/20/24
15:43
Sodium
Total Bilirubin 9.4 H
AST 813 H*
ALT 283 H
Albumin 2.8 L
Triglycerides 1943 H
Urine Osmolality
Urine Creatinine
Urine Sodium
CT abdomen and pelvis on September 20, 2024 with IV contrast
IMPRESSION:
Pancreas itself has a normal CT appearance. There is mild stranding of the retroperitoneal fat adjacent to the pancreatic tail. This could be related to mild or early acute pancreatitis.
Severe fatty infiltration of liver, which is enlarged
Mild muscular hypertrophy of the wall the sigmoid colon, suggesting previous diverticulitis.
Physical Exam
Patient is awake alert oriented and in no distress. Mood and affect were pleasant, insight and judgment were good. Pupils are equal round and reactive to light, extraocular movements are intact, sclera were anicteric. Hearing was normal, ears and
nose are intact. Oropharynx was clear. Neck was supple with trachea midline and no thyromegaly. Heart was regular rate and rhythm without rubs. Lower extremities without edema. Lungs were clear to auscultation bilaterally and with normal
excursion. Abdomen was soft, nontender, with normal active bowel sounds, and no hepatosplenomegaly. Skin was without rash and with normal turgor.
Data Reviewed
-
CT Scan: Report Reviewed by me
Labs: Labs Reviewed by me
Old Records: Requested
Assessment/Plan
-
Assessment
Alcohol abuse
Alcohol withdrawal
Elevated LFTs/hepatitis
Elevated lipase
Hypertriglyceridemia
Nausea/vomiting
Fatty liver
Hyponatremia
Elevated blood pressure
Plan
Elevated urine osmolality, elevated urine sodium suggests an excess ADH state
There is likely some effect on the sodium level from the hypertriglyceridemia as well, though not enough to negate the apparent hyponatremia
He would otherwise be a candidate for Samsca but given his elevated LFTs and liver disease this cannot be used
Hypertonic saline at 20 mL/h given his total body water.
Serial BMP
Fluid restriction 40 ounces
[2024-09-20 17:02] LABS: Triglycerides 1943 mg/dl (10-149)
[2024-09-20] MEDS: KLOR-CON 40 MEQ PO (17:31)
[2024-09-20] MEDS: LOVENOX 40 MG SC (17:32)
[2024-09-20] MEDS: NIASPAN TIME RELEASE 250 MG PO (19:34)
[2024-09-20 21:55] LABS: Blood Urea Nitrogen 2 mg/dl (9-20); Calcium 7.7 mg/dl (8.4-10.2); Carbon Dioxide 22 mmol/L (22-30); Chloride 93 mmol/L (98-107); Estimated Creatinine Clearance 109 ml/min; Glucose 158 mg/dl (70-99); Potassium 4.1 mmol/L (3.5-5.1); Sodium 125 mmol/L (135-145); eGFR > 60.00
[2024-09-20 22:04] LABS: Triglycerides 1225 mg/dl (10-149)
[2024-09-20] MEDS: NOVOLIN R INSULIN INFUSION 100 IV (22:34)
[2024-09-20] MEDS: NSS (PRESERVATIVE FREE) 8 ML IV (22:36)
[2024-09-20] MEDS: PEPCID 20 MG IV (22:37)
[2024-09-20 22:44] LABS: Glucose - Point of Care 133 mg/dl (70-99)
--- NOTE | 2024-09-20 22:57 | W.PN.UPDATE ---
Update Note
Progress Note Update
09/20/24
2199- Patients repeat bmp labs reviewed with Dr. Sommer, titrator. Na 125 from 122, continues to be hypernatremic. Will recheck bmp in 4 hours and hold hypertonic 3% saline if sodium is 127 and will recheck serum osmolality. Will initiate
insulin gtt at 1u/hr for hypertriglyceridemia, unable to initiate D5 or 10 due to persistent hypernatremia will consider if sodium improves. Follow repeat labs q4hrs.
[2024-09-20 23:40] LABS: Glucose - Point of Care 116 mg/dl (70-99)
[2024-09-21] VITALS (16 sets, daily range): BP systolic 106–154; BP diastolic 77–107; BMI 30.3
[2024-09-21 00:39] LABS: Glucose - Point of Care 104 mg/dl (70-99)
--- NOTE | 2024-09-21 00:50 | PTCARENOTE ---
Pt received at 19:00, initial assessment as documented. 21:00 labs collected, FORGING PRESS OPERATOR notified of results--discussed with nephrology. Pt started on insulin gtt at 1unit/hr, 3% NaCl continues as ordered. q1 BG ordered and completed. Safe environment
maintained, call jaquez within reach.
[2024-09-21 01:43] LABS: Glucose - Point of Care 130 mg/dl (70-99)
[2024-09-21 01:58] LABS: Osmolality Serum 270 mOsm/kg (275-300)
[2024-09-21 02:33] LABS: Blood Urea Nitrogen 2 mg/dl (9-20); Calcium 7.9 mg/dl (8.4-10.2); Carbon Dioxide 23 mmol/L (22-30); Chloride 97 mmol/L (98-107); Estimated Creatinine Clearance 109 ml/min; Glucose 101 mg/dl (70-99); Potassium 3.7 mmol/L (3.5-5.1); Sodium 127 mmol/L (135-145); eGFR > 60.00
[2024-09-21 02:45] LABS: Glucose - Point of Care 125 mg/dl (70-99)
[2024-09-21 03:14] LABS: Triglycerides 1170 mg/dl (10-149)
[2024-09-21 03:41] LABS: Glucose - Point of Care 110 mg/dl (70-99)
[2024-09-21 04:46] LABS: Glucose - Point of Care 103 mg/dl (70-99)
[2024-09-21 05:41] LABS: Glucose - Point of Care 93 mg/dl (70-99)
[2024-09-21 05:48] LABS: INR 0.98; PT 13.5 Sec (11.4-14.6)
[2024-09-21 05:55] LABS: % Basophils 0.8 % (0-2); % Eosinophils 0.4 % (0-6); % Immature Granulocytes 4.4 % (0-0.5); % Lymphocytes 24.4 % (20.5-51.1); % Monocytes 7.3 % (1.7-9.3); % Neutrophils 62.7 % (42.2-75.2); Absolute Immature Granulocytes 0.2 10^3/uL (0-0.05); Absolute Lymphocytes 1.2 10^3/uL (1.2-3.4); Absolute Monocytes 0.4 10^3/uL (0.1-0.6); Absolute Neutrophils 3.2 10^3/uL (1.4-6.5); Mean Corp Hgb Conc. 34.4 g/dL (33.0-37.0); Mean Corpuscular Volume 96.1 fL (80.0-94.0); Mean Platelet Volume 11.9 fL (7.4-10.4); Nucleated Red Blood Cells % 0.4 % (-); Platelet Count 82 10^3/uL (130-400); Red Blood Cell Count 3.33 10^6/uL (4.70-6.10); Red Cell Dist. Width 17.4 % (11.5-14.5); White Blood Cell Count 5.1 10^3/uL (4.8-10.8)
[2024-09-21 06:30] LABS: ALT (SGPT) 271 U/L (0-50); AST (SGOT) 667 U/L (17-59); Albumin 2.7 g/dl (3.5-5.0); Alkaline Phosphatase 372 U/L (38-126); Blood Urea Nitrogen < 2 mg/dl (9-20); Calcium 7.3 mg/dl (8.4-10.2); Carbon Dioxide 27 mmol/L (22-30); Chloride 98 mmol/L (98-107); Estimated Creatinine Clearance 109 ml/min; Glucose 88 mg/dl (70-99); Lipase 726 U/L (23-300); Magnesium 2.1 mg/dl (1.6-2.3); Phosphorus 0.7 mg/dl (2.5-4.5); Potassium 3.5 mmol/L (3.5-5.1); Sodium 132 mmol/L (135-145); Total Bilirubin 9.7 mg/dl (0.2-1.3); Total Protein 5.5 g/dl (6.3-8.2); Triglycerides 1117 mg/dl (10-149); eGFR > 60.00
[2024-09-21 06:44] LABS: Glucose - Point of Care 123 mg/dl (70-99)
--- NOTE | 2024-09-21 07:25 | PTCARENOTE ---
Received pt sitting up in bed. In a round about way he was communicating to me that he did nt sleep well last night. He said he was prescribed sleeping pills in the past and had the dosage increased once but that still didn't help so he just stopped
them. I informed him of the plan of care and the importance of candidness when providing information to the care team, understanding that vulnerability is uncomfortable. He was assured that his mental and physical wellbeing is paramount and it is ok
to write his thought and feelings down to get them out f his head and participating with his treatments. He verbalized his understanding and appreciation. Remain tachycardic, and understands that we are continuing to monitor him for S/S of alcohol
withdrawal. He verbalized his understanding.
--- NOTE | 2024-09-21 07:33 | W.PN.INTV ---
Today's Communication / Plan
Recommendations
Continue ETOH w/d taper, psych eval noted
Insulin gtt transition to SS PRN
Replete electrolytes as needed, repeat labs today and in AM
PT/OT, OOB as able
Transfer to tele, we will sign off upon transfer
Assessment
-
This is a 39-year-old male w/ history of GERD, bipolar disorder not treated presents to the emergency department from clinic with concern for alcoholic liver disease. Has been complaining of indigestion, bloating, cough, weight loss of 25lbs. Had
routine OP blood test which showed elevated liver enzymes. Patient is known to have significant alcohol intake, reportedly drinks 5 shots of high proof liquor every night to help him sleep. He reported that he tried to stop within the last year
but had tremors and so continued drinking. He said he started drinking about 1 year ago. He denies any other recreational drug use. In the emergency department, patient is hemodynamically stable. Right upper ultrasound shows hepatomegaly with
diffuse fatty liver w/o clear cirrhosis, ductal dilatation, pancreatitis, ascites. Admitted to ICU for frequent blood work for suspected alcoholic hepatitis.
Acute alcoholic hepatitis
Hypertriglyceridemia
Possible pancreatitis, elevated lipase but not otherwise noted on imaging
Indigestion, bloating
Subacute cough
Weight loss 25 pounds
Chronic alcohol abuse, 5 drinks per day
At risk for ETOH w/d
Conditions present prior to admission
GERD
Bipolar disorder, untreated
Insomnia
Obesity
Chronic alcohol abuse
Intellectual disability history
Plan
No current signs of metabolic encephalopathy or MS changes/following commands
Psychiatric history noted above including possible bipolar d/o
ETOH abuse noted, on MSAS
Psych eval
Denies pain at this time.
Pain/sedation: continue phenobarb taper, MSAS
RASS goals: 0
Hemodynamically stable, not requiring pressors.
Cardiac history reviewed--none
ST issue could be related to w/d, dehydration, on IVFs
No prior ECHO for review, new study pending
Monitor on telemetry
Oxygen needs: stable on RA
Prior history of lung disease: none, nonsmoker
Supplemental O2 as indicated to maintain sats > 89%
No prior chest imaging, can obtain baseline if symptoms develop
Diet advancement
At risk for pancreatitis given high TG but not having symptoms/imaging not indicative
CT AP negative
Continue IVFs, trend LFTs/lipase/TGs --improving
GI eval appreciated
Aspiration precautions, HOB > 30 degrees
GI prophylaxis--add H2B given h/o GERD
Creat at baseline, no history of renal disease
Void trials
Follow urine output, critical I/Os
Replete electrolytes as needed
No signs/symptoms suspicious for infectious etiology at this time
Observe off antibiotics for now
Follow fever trend, WBC count
CBC stable, no signs of bleeding or coagulopathy.
DVT prophylaxis as assessed based on risk, including mechanical SCDs
Can transfuse if indicated for Hb <7, plt < 10
INR 1.01
No prior h/o diabetes or thyroid disease
Monitor accuchecks PRN/SS coverage if needed
HbA1c 5.8
Stop insulin gtt, continue SS if needed
Can transfer to floors if doing well today.
Diagnostic Data
Chest X-Ray:
CT Scan:
RUQ US 09/20/24- Hepatomegaly with diffuse fatty infiltration of the liver
Echo:
PFT's:
Reports and relevant images were personally reviewed.
Critical Care time 35 mins -- The patient is admitted for acute critical illness for the treatment of vital organ failure and/or prevention of further life-threatening conditions. Total care includes time spent in review of history, physical exam,
medications, hemodynamic/ventilator parameters, laboratory data, imaging and discussion with house staff, pharmacy, respiratory therapy, marketing production coordinator, and nursing.
Subjective Dataa
Subjective Data
Date of Service:
Date of Service: September 21, 2024
Chief Complaint: Judge Follow Up
Subjective:
no acute events ON, remains stable without pressors, on room air
placed back on insulin gtt and 3% overnight, labs are improved
no new complaints
Objective Data
Data Reviewed
Vital Signs / I&O / Oxygen:
Vital Signs
Temp Pulse Resp BP Pulse Ox
99.2 F 104 25 154/107 98
09/21/24 03:33 09/21/24 07:00 09/21/24 07:00 09/21/24 05:00 09/21/24 07:00
Intake and Output
09/20/24 09/21/24 09/22/24
06:59 06:59 06:59
Intake Total 3347 / 3347
Output Total 525 / 525
Balance 2822 / 2822
SaO2 98
Physical Exam
General: Comfortable and Other (NAD)
HEENT: Normocephalic, Anicteric and Moist Mucous Membranes
Cardiovascular: S1-S2 and Regular Rhythm
Respiratory: Clear and Non-Labored Respirations
GI: Soft, Non Distended and Non Tender
Neurology: Awake, Alert, Oriented, No Motor Deficits and Tremors
Skin: Warm, Dry and Good Color
Labs/Micro/Reports
Lab Data
09/21/24 05:12
09/21/24 05:12
Laboratory Results
09/21/24
05:12
PT 13.5
INR 0.98
[2024-09-21] MEDS: SODIUM PHOSPHATE 255 MEQ IV (07:36)
[2024-09-21 07:50] LABS: Glucose - Point of Care 97 mg/dl (70-99)
[2024-09-21] MEDS: THIAMINE INJECTION 200 MG IV ×2 (07:58→21:43)
[2024-09-21] MEDS: PHENOBARBITAL 65 MG IV ×3 (07:58→21:44)
[2024-09-21] MEDS: FOLVITE 1 MG PO (07:58)
[2024-09-21] MEDS: TRICOR 145 MG PO (07:58)
[2024-09-21] MEDS: NIASPAN TIME RELEASE 250 MG PO (07:58)
--- NOTE | 2024-09-21 08:17 | W.PN.NEPH.PH ---
Today's Communication / Plan
-
Maintain fluid restriction
Phosphorus repletion
No further 3% today
Follow-up labs in a.m.
Assessment/Plan
-
Assessment
Alcohol abuse
Alcohol withdrawal
Elevated LFTs/hepatitis
Elevated lipase
Hypertriglyceridemia
Nausea/vomiting
Fatty liver
Hyponatremia
Elevated blood pressure
Hypophosphatemia
Plan
Sodium up to 132 following hypertonic saline infusion
Elevated urine osmolality, elevated urine sodium suggests an excess ADH state
There is likely some effect on the sodium level from the hypertriglyceridemia as well, though not enough to negate the apparent hyponatremia
He would otherwise be a candidate for Samsca but given his elevated LFTs and liver disease this cannot be used
Sodium phosphate was provided earlier this morning with infusion unfortunately in D5W
Serial BMP
Fluid restriction 40 ounces
-
-
Date of Service: September 21, 2024
CC / HPI / ROS
-
Chief Complaint:
Hyponatremia
History of Present Illness:
Sodium up to 132 following 3% infusion
Hemodynamically stable
Phosphorus low this morning
Review of Systems:
Nonoliguric
No fever
Labs
-
Labs:
WBC 5.1 10^3/uL (4.8-10.8) 09/21/24 05:12
RBC 3.33 10^6/uL (4.70-6.10) L 09/21/24 05:12
Hgb 11.0 g/dL (13.0-18.0) L 09/21/24 05:12
Hct 32.0 % (39.0-52.0) L 09/21/24 05:12
Plt Count 82 10^3/uL (130-400) L D 09/21/24 05:12
Sodium 132 mmol/L (135-145) L 09/21/24 05:12
Potassium 3.5 mmol/L (3.5-5.1) 09/21/24 05:12
Chloride 98 mmol/L (98-107) 09/21/24 05:12
Carbon Dioxide 27 mmol/L (22-30) 09/21/24 05:12
BUN < 2 mg/dl (9-20) L 09/21/24 05:12
Creatinine 0.5 mg/dL (0.7-1.3) L 09/21/24 05:12
eGFR > 60.00 09/21/24 05:12
Glucose 88 mg/dl (70-99) 09/21/24 05:12
Calcium 7.3 mg/dl (8.4-10.2) L 09/21/24 05:12
Phosphorus 0.7 mg/dl (2.5-4.5) L* 09/21/24 05:12
Albumin 2.7 g/dl (3.5-5.0) L 09/21/24 05:12
Physical Exam
-
Vital Signs:
Vital Signs
Temp Pulse Resp BP Pulse Ox
99.2 F 104 25 154/107 98
09/21/24 03:33 09/21/24 07:00 09/21/24 07:00 09/21/24 05:00 09/21/24 07:00
Cardiovascular:: Regular rate and rhythm (Tachycardic)
Respiratory:: Bilateral: CTA
Lung Excursion:: Normal
Abdomen:: Nontender
Bowel Sounds:: Normal
Extremity Edema:: None: Bilateral:
Beauchamp Catheter: No
[2024-09-21 08:56] LABS: Glucose - Point of Care 127 mg/dl (70-99)
[2024-09-21 09:54] LABS: Glucose - Point of Care 106 mg/dl (70-99)
--- NOTE | 2024-09-21 10:27 | PN.CDI ---
Addendum entered and electronically signed by Yaw Longoria MD 09/22/24 13:13:
its alcohol intake-related. not clinically significant
Original Note:
CDI
- -
CDI:
Physician Documentation Request
Admit Date: 09/19/24 22:31
Dear Doctor Von,
Please review the following and provide your response in the progress notes.
Clinical Indicators:
Pt admitted with Alcohol withdrawal/Alcoholic Pancreatitis
Documented per classroom teacher consult, ' Weight loss 25 pounds...'
Nutrition consult, ' Pt reports significant 25lb, 19.4% wt loss over the past 2 months related to inability to eat, vomiting from increased work related anxiety. Pt meets ASPEN criteria for severe protein calorie malnutrition of chronic illness
with >7.5% wt loss x 3 months, prolonged intake intake <75% x 1 month. Nutrition to follow diet advancement as per level of care.... '
Based on the above information and your assessment, which of the following most accurately represents the patient's nutritional status?
Severe Protein Calorie malnutrition
Other (please specify)
[place] Criteria ([facility] Hospitalist 2017)
2 or more criteria must be present for either
non severe or severe malnutrition
Note that the criteria differs related to the
presence of an acute or chronic illness
Acute Illness Chronic Illness
Energy Intake Non Severe: <75% for >7 days Non Severe: <75% for >1 month
Severe: <50% for >5 days Severe: <75% for >1 month
Weight Loss Non Severe: 1-2% over 1 week Non Severe: 5% over 1 month
5% over 1 month 7.5% over 3 months
7.5% over 3 months 10% over 6 months
1 year N/A 20% over 1 year
Severe: >2% over 1 week Severe: >5% over 1 month
>5% over 1 month >7.5% over 3 months
>7.5% over 3 months >10% over 6 months
1 year N/A >20% over 1 year
Body Fat Non Severe: Mild Decrease Non Severe: Mild Loss
Severe: Moderate Decrease Severe: Severe Loss
Muscle Mass Non Severe: Mild Decrease Non Severe: Mild Loss
Severe: Moderate Decrease Severe: Severe Loss
Fluid Accumulation Non Severe: Mild Accumulation Non Severe: Mild Accumulation
Severe: Moderate to severe Severe: Moderate to severe
accumulation accumulation
Reduced Bath Steward/Stewardess Strength Non Severe: N/A Non Severe: N/A
Severe: Measurably reduced Severe: Measurably reduced
Use of terms such as suspected, likely, concern for, or probable (associated with a specific diagnosis that is being evaluated, monitored, or treated as if it exists) are acceptable and can be coded in the inpatient setting, when documented at the
time of discharge.
Thank you,
Lauren Patel RN
CDI Specialist
[place] [facility]
Please use your independent medical judgment in providing your response.
--- NOTE | 2024-09-21 10:35 | W.PN.GI.CBS2 ---
Today's Communication / Plan
-
GI will sign off. Outpatient f/u with GI at [facility]. Please call with questions.
Assessment / Plan
-
39-year-old male with history of alcohol abuse, bipolar disorder, recent diverticulitis April 2024, who currently is living with his sister presenting with nausea and vomiting episodes which is going on for several months now but more so recently
and poor p.o. intake. Denies any abdominal pain, trouble swallowing but reports globus sensation. As per sister last about 25 pounds in the last few months. He does have GI at [facility] who did colonoscopy after his diverticulitis episode in
April 2024, reportedly had 1 polyp. EGD not done at that time.
Significant alcohol use with at least 5 shots of alcohol daily.
On arrival, exam notable for tachycardia and hypertension, likely 2/2 acute etoh withdrawal, c/f DTs
Labs demonstrated hyponatremia, hypokalemia and LFTs showing elevated total bilirubin at 8.7, AST of 737, ALT of 328 and alk phos of 385 with triglycerides more than 2500. Lipase of 491. Blood alcohol level of 321 on admission.
Abdominal ultrasound showing diffuse fatty liver with hepatomegaly and subsequent CT scan also showing mild stranding of the retroperitoneal fat adjacent to the pancreatic tail and severe fatty infiltration of the liver.
#EtoH Hepatitis-- DF <32, no role of steroids
-acute alcohol withdrawal with c/f DTS, overall, improving. No longer hypertensive but continues to be mildly tachycardic
UDS +benzos; etoh level 321
Plt dropped to 82 today, down from 145, would monitor closely, no other signs suggesting DIC
Continue management of DTs per medical team/psychiatry
LFTs improving
Recommend acute hepatitis panel
#Mild elevation in lipase and CT showing mild stranding adjacent to the pancreatic tail--clinically, do not feel he has acute pancreatitis, however, has several risk factors, including etoh as well as significnatly elevated triglycerides
-Management of triglycerides per primary/endocrine
-tolerating a diet without issue
#Significant elevation in triglycerides
This is risk factor for pancreatitis apart from his underlying alcohol abuse.
Need management of triglyceride levels
#Hyponatremia, hypokalemia
improving, nephrology managing
After discharge, he will need follow-up with outpatient GI at [facility]. GI will sign off, please call with quesitons.
Subjective
Subjective
Date of Service: September 21, 2024
Patient seen in follow-up, reports feeling much better this morning. He denies any nausea, vomiting, abdominal pain. He is tolerating a diet without issue. LFTsd and Triglycerides improving. Low phos this morning, 0.7. Na improved to 132.
Objective
Data Reviewed
Laboratory Data:
Laboratory Results
09/21/24 05:12
09/21/24 05:12
Laboratory Results
PT 13.5 Sec (11.4-14.6) 09/21/24 05:12
INR 0.98 09/21/24 05:12
APTT 31.5 Sec (23.4-35.0) 09/20/24 03:15
Phosphorus 0.7 mg/dl (2.5-4.5) L* 09/21/24 05:12
Magnesium 2.1 mg/dl (1.6-2.3) 09/21/24 05:12
Total Bilirubin 9.7 mg/dl (0.2-1.3) H 09/21/24 05:12
AST 667 U/L (17-59) H* 09/21/24 05:12
ALT 271 U/L (0-50) H 09/21/24 05:12
Alkaline Phosphatase 372 U/L (38-126) H 09/21/24 05:12
Lipase 726 U/L (23-300) H 09/21/24 05:12
Vital Signs and I&O:
Vital Signs
Temp Pulse Resp BP Pulse Ox
98.4 F 112 20 106/95 97
09/21/24 07:45 09/21/24 08:15 09/21/24 08:15 09/21/24 08:09 09/21/24 08:15
I&O
09/20/24 09/21/24 09/22/24
06:59 06:59 06:59
Intake Total 3347 / 3411.7 249.4 / 249.4
Output Total 525 / 525
Balance 2822 / 2886.7 249.4 / 249.4
Physical Exam
Physical Exam
HEENT: Anicteric and Moist mucous membranes
GI: Soft, Non Distended, Non Tender and Normal Bowel Sounds
Neuro: Other (No asterixes. AAOx3)
--- NOTE | 2024-09-21 10:38 | PN.CDI ---
Addendum entered and electronically signed by Yaw Longoria MD 09/22/24 13:12:
No further clarification can be done
Original Note:
CDI
- -
CDI:
Physician Documentation Request
Admit Date: 09/19/24 22:31
Dear Doctor,
Please review the following and provide your response in the progress notes.
Clinical Indicators:
Pt admitted with Alcohol withdrawal/Alcoholic Pancreatitis
Documented per nephrology consult, ' Elevated urine osmolality, elevated urine sodium suggests an excess ADH state There is likely some effect on the sodium level from the hypertriglyceridemia as well, though not enough to negate the apparent
hyponatremia He would otherwise be a candidate for Samsca but given his elevated LFTs and liver disease this cannot be used Hypertonic saline at 20 mL/h given his total body water.Serial BMP Fluid restriction 40 ounces...'
Documented update note 09/20, 0- Patients repeat bmp labs reviewed with Dr. Sommer, plastics seasoner operator. Na 125 from 122...recheck bmp in 4 hours and hold hypertonic 3% saline if sodium is 127 and will recheck serum osmolality...'
09/20/24 09/21/24
13:54 01:03
Serum Osmolality 270 L
Urine Osmolality 436
Urine Sodium 152 H
Please provide the suspected etiology of the Sodium levels:
SIADH
Hyponatremia
Other ( please specify)
Use of terms such as suspected, likely, concern for, or probable (associated with a specific diagnosis that is being evaluated, monitored, or treated as if it exists) are acceptable and can be coded in the inpatient setting, when documented at the
time of discharge.
Thank you,
Lauren Patel RN
CDI Specialist
[place] [employer]
Please use your independent medical judgment in providing your response.
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
[2024-09-21] MEDS: NEUTRA-PHOS POWDER PACKET 250 MG PO ×2 (11:54→16:32)
[2024-09-21] MEDS: POTASSIUM PHOSPHATE 259.0909 MEQ IV (11:54)
[2024-09-21] MEDS: NOVOLOG FLEXPEN-LOW RESISTANCE SC ×2 (12:04→16:36)
[2024-09-21 12:14] LABS: Glucose - Point of Care 117 mg/dl (70-99)
--- NOTE | 2024-09-21 12:17 | PTCARENOTE ---
Pt's mother and sister are at the bedside. They brought him lunch. He ate a [employer] double cheeseburger and FF with a medium soft drink. He ate al of it. He also reported a formed BM earlier this morning when he was washing up.
--- NOTE | 2024-09-21 13:10 | W.PN.HOSP.TC ---
Addendum entered and electronically signed by Yaw Longoria MD 09/21/24 13:17:
#Thrombocytopenia
most liekly 2/2 alcohol abuse
monitor
Original Note:
Today's Communication/Plan
-
repleted phosphorus, repeat labs
cont phenobarb
Assessment / Plan
Assessment / Plan
39yo M with PMHx of diverticulitis, alcohol abuse brought by his family 2/2 concern for elevated LFT and triglicerides on outpatient blood test. Managed for alcohol withdrawal and acute alcoholic pancreatitis
A/P:
#Acute alcoholic pancreatitis
#Triglyceridemia 2/2 alcohol intake
#Bilirubinemia
#Transaminitis 2/2 acute alcoholic pancreatitis
#Elevated alk.phos 2/2 acute alcoholic pancreatitis
challenging situation with development of acute significant drop in sodium with IVF, but abd pain absent and triglycerides much improved - will avoid further hydration and cont to monitor
No gall stones on US, CBD WNL
Insulin drip, fenofibrate, niacyn, low fat diet. serial triglycerides
Counseled on alcohol cessation
IVF
GI consult
MELD 3.0 on admission - 18
follow LFT
CM for [facility], psychiatry
GI followed - hepatitis panel, cont f/u as outpatient
#Hypophosphatemia
#Hypocalcemia
#Hyponatremia
#hypomagnesemia
2/2 poor oral intake
hydrate
serial electrolytes, replete as needed
#Alcohol abuse with withdrawal
thiamine/folate
phenobarb taper
MSAS protocol
watch for DT
DVT ppx hep
Full code
I have spent at least 39min reviewing the chart, test results, communication with consultants and direct patient care
Anticipated Discharge: > 48 hours
Subjective/Interval History
-
Date of Service: September 21, 2024
Objective Data
-
Labs:
Laboratory Results
09/21/24 09/21/24
01:03 05:12
WBC 5.1
Hgb 11.0 L
Hct 32.0 L
Plt Count 82 L D
PT 13.5
INR 0.98
Sodium 127 L 132 L
Potassium 3.7 3.5
Chloride 97 L 98
Carbon Dioxide 23 27
BUN 2 L < 2 L
Creatinine 0.6 L 0.5 L
Glucose 101 H 88
Calcium 7.9 L 7.3 L
Total Bilirubin 9.7 H
AST 667 H*
ALT 271 H
Alkaline Phosphatase 372 H
Vital Signs:
Vital Signs
Temp Pulse Resp BP Pulse Ox
98.8 F 111 18 127/79 97
09/21/24 11:48 09/21/24 10:45 09/21/24 10:45 09/21/24 10:33 09/21/24 10:45
I&O
09/20/24 09/21/24 09/22/24
06:59 06:59 06:59
Intake Total 3347 / 3411.7 971.4 / 971.4
Output Total 525 / 525
Balance 2822 / 2886.7 971.4 / 971.4
Review of Systems
-
History Source: Patient
All other systems: Reviewed and negative
Physical Exam
-
General: No Apparent Distress
HEENT: Normocephalic
Respiratory: Clear to Auscultation
GI: Soft, Nontender and Nondistended
Genito-urinary: No Costovertebral Tender
Skin: Warm
Neuro: Awake, Alert, Oriented and AO x 3
Psych: Calm
--- NOTE | 2024-09-21 15:24 | PTCARENOTE ---
Written material printed from the CDC web site regarding what a standard dink is, and what is considered heavy drinking. Attached to that was literature on the physical effects of fpc consumption of alcohol. Safe environment maintained.
Supportive care continued.
[2024-09-21 15:46] LABS: Hepatitis B Surface Antigen Negative (Negative)
--- NOTE | 2024-09-21 16:00 | PTCARENOTE ---
recd pt 1515, handoff bedside. K phos rider infusing, OOB to bathroom, voided. aware of plans for remainder of shift. assessment as documented.
[2024-09-21 16:04] LABS: Hepatitis B Core Ab, Total Negative (Negative); Hepatitis C Antibody Negative (Negative)
[2024-09-21 16:47] LABS: Glucose - Point of Care 99 mg/dl (70-99)
[2024-09-21 17:07] LABS: Hepatitis A IgM Antibody Negative (Negative)
[2024-09-21] MEDS: LOVENOX 40 MG SC (17:57)
[2024-09-21 21:04] LABS: Blood Urea Nitrogen < 2 mg/dl (9-20); Calcium 7.3 mg/dl (8.4-10.2); Carbon Dioxide 26 mmol/L (22-30); Chloride 96 mmol/L (98-107); Estimated Creatinine Clearance 109 ml/min; Glucose 126 mg/dl (70-99); Lipase 646 U/L (23-300); Potassium 3.5 mmol/L (3.5-5.1); Sodium 130 mmol/L (135-145); eGFR > 60.00
[2024-09-21 21:18] LABS: Glucose - Point of Care 157 mg/dl (70-99)
[2024-09-21 21:31] LABS: Triglycerides 1099 mg/dl (10-149)
[2024-09-21] MEDS: PEPCID 20 MG PO (21:44)
--- NOTE | 2024-09-21 22:56 | PTCARENOTE ---
Assumed care of pt at 1900. Pt is A/O x4 with withdrawn/flat affect but is cooperative with care. MSAS protocol ongoing Q4 hours, pt scores for elevated HR (has been ST 100s-120s), and slight tremor which is only noticeable when he is reaching for
things or using his hands. Physical assessment completed, see nursing shift assessment flowsheet for full details. No c/o pain. SpO2 96% on RA. Pt's sister Bethany called for update, plan of care discussed and all questions answered. Call jaquez and
personal items within reach. Pt is telemetry level of care.
[2024-09-22 00:01] VITALS: BP 127/102
[2024-09-22 03:45] VITALS: BMI 30.4
[2024-09-22 04:00] VITALS: BP 113/79
[2024-09-22 04:35] LABS: ALT (SGPT) 233 U/L (0-50); AST (SGOT) 456 U/L (17-59); Alkaline Phosphatase 473 U/L (38-126); Blood Urea Nitrogen < 2 mg/dl (9-20); Calcium 7.9 mg/dl (8.4-10.2); Carbon Dioxide 24 mmol/L (22-30); Chloride 98 mmol/L (98-107); Estimated Creatinine Clearance 110 ml/min; Glucose 124 mg/dl (70-99); Lipase 640 U/L (23-300); Magnesium 1.9 mg/dl (1.6-2.3); Phosphorus 2.1 mg/dl (2.5-4.5); Potassium 4.1 mmol/L (3.5-5.1); Sodium 131 mmol/L (135-145); Total Bilirubin 11.9 mg/dl (0.2-1.3); eGFR > 60.00
[2024-09-22 04:48] LABS: Triglycerides 1389 mg/dl (10-149)
[2024-09-22 06:28] LABS: % Basophils 0.9 % (0-2); % Eosinophils 0.5 % (0-6); % Lymphocytes 17.5 % (20.5-51.1); % Monocytes 6.7 % (1.7-9.3); % Neutrophils 70.4 % (42.2-75.2); Absolute Basophils 0.1 10^3/uL (0-0.2); Absolute Immature Granulocytes 0.3 10^3/uL (0-0.05); Absolute Lymphocytes 1.3 10^3/uL (1.2-3.4); Absolute Monocytes 0.5 10^3/uL (0.1-0.6); Absolute Neutrophils 5.3 10^3/uL (1.4-6.5); Hematocrit 32.3 % (39.0-52.0); Hemoglobin 11.4 g/dL (13.0-18.0); Mean Corp Hgb Conc. 35.3 g/dL (33.0-37.0); Mean Corpuscular Hgb 33.3 pg (27.0-31.0); Mean Corpuscular Volume 94.4 fL (80.0-94.0); Mean Platelet Volume 11.4 fL (7.4-10.4); Nucleated Red Blood Cells % 0.7 % (-); Platelet Count 101 10^3/uL (130-400); Red Blood Cell Count 3.42 10^6/uL (4.70-6.10); Red Cell Dist. Width 17.8 % (11.5-14.5); White Blood Cell Count 7.6 10^3/uL (4.8-10.8)
[2024-09-22 06:35] LABS: INR 0.99; PT 13.4 Sec (11.4-14.6)
[2024-09-22 08:00] VITALS: BP 121/94
--- NOTE | 2024-09-22 08:13 | W.PN.NEPH.PH ---
Today's Communication / Plan
-
Replete electrolytes as needed
Maintain fluid restriction in setting of ongoing hyponatremia
Assessment/Plan
-
Assessment
Alcohol abuse
Alcohol withdrawal
Elevated LFTs/hepatitis
Elevated lipase
Hypertriglyceridemia
Nausea/vomiting
Fatty liver
Hyponatremia
Elevated blood pressure
Hypophosphatemia
Plan
Sodium at 131 following hypertonic saline infusion
Elevated urine osmolality, elevated urine sodium suggests an excess ADH state
There is likely some effect on the sodium level from the hypertriglyceridemia as well, though not enough to negate the apparent hyponatremia
He would otherwise be a candidate for Samsca but given his elevated LFTs and liver disease this cannot be used
Replete phosphate PRN
Low phosphorus and low BUN indicative of poor nutritional status in setting of alcohol abuse
Maintain fluid restriction 40 ounces/day
-
-
Date of Service: September 22, 2024
CC / HPI / ROS
-
Chief Complaint:
Hyponatremia
History of Present Illness:
Sodium up to 131
Hemodynamically stable
Phosphorus low this morning
Review of Systems:
Nonoliguric
No fever
Labs
-
Labs:
WBC 7.6 10^3/uL (4.8-10.8) 09/22/24 06:16
RBC 3.42 10^6/uL (4.70-6.10) L 09/22/24 06:16
Hgb 11.4 g/dL (13.0-18.0) L 09/22/24 06:16
Hct 32.3 % (39.0-52.0) L 09/22/24 06:16
Plt Count 101 10^3/uL (130-400) L D 09/22/24 06:16
Sodium 131 mmol/L (135-145) L 09/22/24 03:52
Potassium 4.1 mmol/L (3.5-5.1) 09/22/24 03:52
Chloride 98 mmol/L (98-107) 09/22/24 03:52
Carbon Dioxide 24 mmol/L (22-30) 09/22/24 03:52
BUN < 2 mg/dl (9-20) L 09/22/24 03:52
Creatinine 0.5 mg/dL (0.7-1.3) L 09/22/24 03:52
eGFR > 60.00 09/22/24 03:52
Glucose 124 mg/dl (70-99) H 09/22/24 03:52
Calcium 7.9 mg/dl (8.4-10.2) L 09/22/24 03:52
Phosphorus 2.1 mg/dl (2.5-4.5) L 09/22/24 03:52
Albumin 3.0 g/dl (3.5-5.0) L 09/22/24 03:52
Physical Exam
-
Vital Signs:
Vital Signs
Temp Pulse Resp BP Pulse Ox
99.1 F 116 16 113/79 97
09/22/24 07:00 09/22/24 05:00 09/21/24 16:00 09/22/24 04:00 09/22/24 05:00
Cardiovascular:: Regular rate and rhythm (Tachycardia)
Respiratory:: Bilateral: CTA
Lung Excursion:: Normal
Abdomen:: Nontender and Soft
Bowel Sounds:: Normal
Extremity Edema:: None: Bilateral:
Beauchamp Catheter: No
[2024-09-22] MEDS: LUMINAL 64.8 MG PO ×3 (08:27→21:04)
[2024-09-22] MEDS: NIASPAN TIME RELEASE 250 MG PO (08:27)
[2024-09-22] MEDS: FOLVITE 1 MG PO (08:27)
[2024-09-22] MEDS: TRICOR 145 MG PO (08:27)
[2024-09-22] MEDS: NEUTRA-PHOS POWDER PACKET 250 MG PO (08:27)
[2024-09-22] MEDS: THIAMINE INJECTION 200 MG IV ×2 (08:28→21:03)
[2024-09-22] MEDS: NOVOLOG FLEXPEN-LOW RESISTANCE SC ×3 (08:35→17:43)
[2024-09-22 08:37] LABS: Glucose - Point of Care 128 mg/dl (70-99)
[2024-09-22 11:49] LABS: Glucose - Point of Care 101 mg/dl (70-99)
[2024-09-22 12:00] VITALS: BP 118/89
--- NOTE | 2024-09-22 12:50 | W.PN.HOSP.TC ---
Today's Communication/Plan
-
Keep NPO pending improvement in tiglycerides
Follow electrolytes
Follow LFT - INR WNL, no concern for acute liver failure
Assessment / Plan
Assessment / Plan
39yo M with PMHx of diverticulitis, alcohol abuse brought by his family 2/2 concern for elevated LFT and triglicerides on outpatient blood test. Managed for alcohol withdrawal and acute alcoholic pancreatitis
A/P:
#Acute alcoholic pancreatitis unlikely (as per GI eval)
#Triglyceridemia 2/2 alcohol intake
#Bilirubinemia
#Transaminitis 2/2 acute alcoholic pancreatitis
#Elevated alk.phos 2/2 acute alcoholic pancreatitis
challenging situation with development of acute significant drop in sodium with IVF, but abd pain absent and triglycerides much improved - will avoid further hydration and cont to monitor
No gall stones on US, CBD WNL
Insulin drip, fenofibrate, niacyn, low fat diet. serial triglycerides
Counseled on alcohol cessation
IVF
GI consult
MELD 3.0 on admission - 18
follow LFT
CM for [facility], psychiatry
GI followed - hepatitis panel neg, cont f/u as outpatient
#Hypophosphatemia
#Hypocalcemia
#Hyponatremia
#hypomagnesemia
2/2 poor oral intake
serial electrolytes, replete as needed
Developed hypernatremia on hydration - start FR
Nephrology follows
Chest XR: No evidence of active cardiopulmonary disease
#Alcohol abuse with withdrawal
thiamine/folate
phenobarb taper
MSAS protocol
watch for DT
#Thrombocytopenia
2/2 alcohol BM suppression
follow CBC
DVT ppx hep
Full code
I have spent at least 39min reviewing the chart, test results, communication with consultants and direct patient care
Anticipated Discharge: > 48 hours
Subjective/Interval History
-
Date of Service: September 22, 2024
Objective Data
-
Labs:
Laboratory Results
09/22/24 09/22/24
03:52 06:16
WBC 7.6
Hgb 11.4 L
Hct 32.3 L
Plt Count 101 L D
PT 13.4
INR 0.99
Sodium 131 L
Potassium 4.1
Chloride 98
Carbon Dioxide 24
BUN < 2 L
Creatinine 0.5 L
Glucose 124 H
Calcium 7.9 L
Total Bilirubin 11.9 H
AST 456 H
ALT 233 H
Alkaline Phosphatase 473 H
Vital Signs:
Vital Signs
Temp Pulse Resp BP Pulse Ox
99.0 F 93 16 118/89 98
09/22/24 11:18 09/22/24 12:00 09/21/24 16:00 09/22/24 12:00 09/22/24 12:00
I&O
09/21/24 09/22/24 09/23/24
06:59 06:59 06:59
Intake Total 3347 / 3411.7 1821.4 / 1821.4 200 / 200
Output Total 525 / 525
Balance 2822 / 2886.7 1821.4 / 1821.4 200 / 200
Review of Systems
-
History Source: Patient
All other systems: Reviewed and negative
Physical Exam
-
General: No Apparent Distress
HEENT: Normocephalic and Other (yellow conjuctiva)
Respiratory: Clear to Auscultation
Cardiac: Regular Rhythm and Tachycardic
GI: Soft, Nontender and Nondistended
Genito-urinary: No Costovertebral Tender
Musculoskeletal: No Clubbing, No Cyanosis and No Edema
Neuro: Awake, Alert, Oriented and AO x 3
Psych: Calm
--- NOTE | 2024-09-22 14:35 | PTCARENOTE ---
Pt denies pain. No s/s alcohol withdrawal noted. Pt offers no complaints except for feeling hungry.
--- NOTE | 2024-09-22 15:19 | W.PN.UPDATE ---
Update Note
Progress Note Update
Patient is in better mood, his sister was visiting. He admits to depression, particularly anhedonia and low motivation. He denies hopelessness or suicidal thoughts. Appetite fair, does have difficulty falling to sleep. Of relevance is FH od
depression including a brother who committed suicide.
Discussed different strategies of coping as well as need to see a therapist. He is also minimizing his problem drinking particularly as alcohol is also a depressant.
Will continue F/U
[2024-09-22 16:01] VITALS: BP 120/85
[2024-09-22 17:36] LABS: Glucose - Point of Care 104 mg/dl (70-99)
[2024-09-22] MEDS: LOVENOX 40 MG SC (18:40)
[2024-09-22 20:00] VITALS: BP 110/91
[2024-09-22] MEDS: PEPCID 20 MG PO (21:04)
--- NOTE | 2024-09-22 23:49 | PTCARENOTE ---
Assumed care of pt at 1900. Pt is A/O x4, flat affect, cooperative with care, has been asleep for most of the shift unless staff is interacting with him in some way. SR 90s/ST low 100s on monitor. MSAS ongoing but pt only scoring 1-2. See nursing
shift assessment flowsheet for full physical assessment details.
[2024-09-23] VITALS: BP 134/96
[2024-09-23 04:18] VITALS: BP 113/94
[2024-09-23 04:56] LABS: INR 0.98; PT 13.3 Sec (11.4-14.6)
[2024-09-23 05:07] LABS: Hematocrit 35.7 % (39.0-52.0); Hemoglobin 12.3 g/dL (13.0-18.0); Mean Corp Hgb Conc. 34.5 g/dL (33.0-37.0); Mean Corpuscular Volume 95.7 fL (80.0-94.0); Mean Platelet Volume 11.5 fL (7.4-10.4); Platelet Count 116 10^3/uL (130-400); Red Blood Cell Count 3.73 10^6/uL (4.70-6.10); Red Cell Dist. Width 17.7 % (11.5-14.5); White Blood Cell Count 8.8 10^3/uL (4.8-10.8)
[2024-09-23 05:10] LABS: ALT (SGPT) 177 U/L (0-50); AST (SGOT) 323 U/L (17-59); Alkaline Phosphatase 442 U/L (38-126); Blood Urea Nitrogen 3 mg/dl (9-20); Calcium 8.3 mg/dl (8.4-10.2); Carbon Dioxide 26 mmol/L (22-30); Chloride 97 mmol/L (98-107); Estimated Creatinine Clearance 110 ml/min; Glucose 99 mg/dl (70-99); Lipase 435 U/L (23-300); Magnesium 1.9 mg/dl (1.6-2.3); Phosphorus 2.2 mg/dl (2.5-4.5); Potassium 4.1 mmol/L (3.5-5.1); Sodium 133 mmol/L (135-145); Total Bilirubin 13.5 mg/dl (0.2-1.3); Total Protein 5.9 g/dl (6.3-8.2); eGFR > 60.00
[2024-09-23 05:25] LABS: Triglycerides 871 mg/dl (10-149)
[2024-09-23 07:42] LABS: % Basophils 1.7 % (0-2); % Eosinophils 0.9 % (0-6); % Lymphocytes 22.2 % (20.5-51.1); % Monocytes 7.7 % (1.7-9.3); % Neutrophils 61.5 % (42.2-75.2); Absolute Basophils 0.2 10^3/uL (0-0.2); Absolute Eosinophils 0.1 10^3/uL (0-0.7); Absolute Immature Granulocytes 0.5 10^3/uL (0-0.05); Absolute Monocytes 0.7 10^3/uL (0.1-0.6); Absolute Neutrophils 5.4 10^3/uL (1.4-6.5)
[2024-09-23 08:21] VITALS: BP 117/96
[2024-09-23] MEDS: NIASPAN TIME RELEASE 250 MG PO (08:38)
[2024-09-23] MEDS: TRICOR 145 MG PO (08:38)
[2024-09-23] MEDS: LUMINAL 32.4 MG PO ×3 (08:38→21:47)
[2024-09-23] MEDS: VITAMIN B1 100 MG PO ×2 (08:38→21:47)
[2024-09-23] MEDS: FOLVITE 1 MG PO (08:38)
[2024-09-23] MEDS: NOVOLOG FLEXPEN-LOW RESISTANCE SC ×2 (08:45→11:51)
[2024-09-23 08:53] LABS: Glucose - Point of Care 94 mg/dl (70-99)
--- NOTE | 2024-09-23 08:56 | W.PN.NEPH.PH ---
Today's Communication / Plan
-
sign off
maintain FR
Assessment/Plan
-
Assessment
Alcohol abuse
Alcohol withdrawal
Elevated LFTs/hepatitis
Elevated lipase
Hypertriglyceridemia
Nausea/vomiting
Fatty liver
Hyponatremia
Elevated blood pressure
Hypophosphatemia
Plan
Sodium at 133 following hypertonic saline infusion days ago
Elevated urine osmolality, elevated urine sodium suggests an excess ADH state
There is likely some effect on the sodium level from the hypertriglyceridemia as well, though not enough to negate the apparent hyponatremia
He would otherwise be a candidate for Samsca but given his elevated LFTs and liver disease this cannot be used
Replete phosphate PRN
Low phosphorus and low BUN indicative of poor nutritional status in setting of alcohol abuse
Maintain fluid restriction 40 ounces/day
we will sign off
-
-
Date of Service: September 23, 2024
CC / HPI / ROS
-
Chief Complaint:
Hyponatremia
History of Present Illness:
Sodium up to 133
Hemodynamically stable
Phosphorus low this morning
Review of Systems:
Nonoliguric
No fever
Labs
-
Labs:
WBC 8.8 10^3/uL (4.8-10.8) 09/23/24 04:26
RBC 3.73 10^6/uL (4.70-6.10) L 09/23/24 04:26
Hgb 12.3 g/dL (13.0-18.0) L 09/23/24 04:26
Hct 35.7 % (39.0-52.0) L 09/23/24 04:26
Plt Count 116 10^3/uL (130-400) L 09/23/24 04:26
Sodium 133 mmol/L (135-145) L 09/23/24 04:26
Potassium 4.1 mmol/L (3.5-5.1) 09/23/24 04:26
Chloride 97 mmol/L (98-107) L 09/23/24 04:26
Carbon Dioxide 26 mmol/L (22-30) 09/23/24 04:26
BUN 3 mg/dl (9-20) L 09/23/24 04:26
Creatinine 0.6 mg/dL (0.7-1.3) L 09/23/24 04:26
eGFR > 60.00 09/23/24 04:26
Glucose 99 mg/dl (70-99) 09/23/24 04:26
Calcium 8.3 mg/dl (8.4-10.2) L 09/23/24 04:26
Phosphorus 2.2 mg/dl (2.5-4.5) L 09/23/24 04:26
Albumin 3.0 g/dl (3.5-5.0) L 09/23/24 04:26
Physical Exam
-
Vital Signs:
Vital Signs
Temp Pulse Resp BP Pulse Ox
98.8 F 103 16 117/96 95
09/23/24 07:35 09/23/24 08:24 09/23/24 08:24 09/23/24 08:21 09/23/24 08:24
Cardiovascular:: Regular rate and rhythm (Tachycardia)
Respiratory:: Bilateral: CTA
Lung Excursion:: Normal
Abdomen:: Nontender and Soft
Bowel Sounds:: Normal
Extremity Edema:: None: Bilateral:
Beauchamp Catheter: No
--- NOTE | 2024-09-23 11:16 | W.PN.UPDATE ---
Update Note
Progress Note Update
Patient is doing reasonably well, denies presently significant depression or anxiety. He admits to poor motivation and low energy and although he knows he needs to develop a plan for his future he has difficulty doing so.
He would potentially profit from mental health tretment which he passively accept. He is not interested in inpatient rehab.
Discussed different strategies to handle anxiety.
--- NOTE | 2024-09-23 11:39 | W.PN.HOSP.TC ---
Today's Communication/Plan
-
Bili elevating, but INR WNL, cont to monior
started on diet - repeat labs in AM, but no abd pain and patient doing well
transfer to [facility]
complete Phenoparb ttaper in the next 24-48h
Assessment / Plan
Assessment / Plan
39yo M with PMHx of diverticulitis, alcohol abuse brought by his family 2/2 concern for elevated LFT and triglicerides on outpatient blood test. Managed for alcohol withdrawal and acute alcoholic pancreatitis
A/P:
#Acute alcoholic pancreatitis unlikely (as per GI eval)
#Triglyceridemia 2/2 alcohol intake
#Bilirubinemia
#Transaminitis 2/2 acute alcoholic pancreatitis
#Elevated alk.phos 2/2 acute alcoholic pancreatitis
challenging situation with development of acute significant drop in sodium with IVF, but abd pain absent and triglycerides much improved - will avoid further hydration and cont to monitor
No gall stones on US, CBD WNL
Insulin drip, fenofibrate, niacyn, low fat diet. serial triglycerides
Counseled on alcohol cessation
IVF
GI consult
MELD 3.0 on admission - 18
follow LFT
CM for [facility], psychiatry
GI followed - hepatitis panel neg, cont f/u as outpatient
#Hypophosphatemia
#Hypocalcemia
#Hyponatremia
#hypomagnesemia
2/2 poor oral intake
serial electrolytes, replete as needed
Developed hypernatremia on hydration - start FR
Nephrology follows
Chest XR: No evidence of active cardiopulmonary disease
#Alcohol abuse with withdrawal
thiamine/folate
phenobarb taper
MSAS protocol
watch for DT
#Thrombocytopenia
2/2 alcohol BM suppression
follow CBC
DVT ppx hep
Full code
I have spent at least 39min reviewing the chart, test results, communication with consultants and direct patient care
Anticipated Discharge: 24 - 48 hours
Subjective/Interval History
-
Date of Service: September 23, 2024
Objective Data
-
Labs:
Laboratory Results
09/23/24
04:26
WBC 8.8
Hgb 12.3 L
Hct 35.7 L
Plt Count 116 L
PT 13.3
INR 0.98
Sodium 133 L
Potassium 4.1
Chloride 97 L
Carbon Dioxide 26
BUN 3 L
Creatinine 0.6 L
Glucose 99
Calcium 8.3 L
Total Bilirubin 13.5 H
AST 323 H
ALT 177 H
Alkaline Phosphatase 442 H
Vital Signs:
Vital Signs
Temp Pulse Resp BP Pulse Ox
98.8 F 103 16 117/96 95
09/23/24 07:35 09/23/24 08:24 09/23/24 08:24 09/23/24 08:21 09/23/24 08:24
I&O
09/22/24 09/23/24 09/24/24
06:59 06:59 06:59
Intake Total 1821.4 / 1821.4 980 / 980
Output Total 1200 / 1200
Balance 1821.4 / 1821.4 -220 / -220
Review of Systems
-
History Source: Patient
All other systems: Reviewed and negative
Physical Exam
-
General: No Apparent Distress
Neuro: Awake, Alert, Oriented and AO x 3
Psych: Calm
[2024-09-23 11:46] LABS: Glucose - Point of Care 195 mg/dl (70-99)
[2024-09-23 15:16] VITALS: BP 124/90
[2024-09-23] MEDS: LOVENOX 40 MG SC (17:05)
[2024-09-23 17:42] LABS: Glucose - Point of Care 166 mg/dl (70-99)
[2024-09-23] MEDS: NOVOLOG FLEXPEN-LOW RESISTANCE 1 UNITS SC (18:33)
--- NOTE | 2024-09-23 20:00 | PTCARENOTE ---
On assessment pt AAOx3, family at the bedside, denies pain and SOB, Medsurg, 97% RA, low fat diet, 1000 ml FR, pt ambulates in room independently, call jaquez in reach.
[2024-09-23] MEDS: PEPCID 20 MG PO (21:47)
[2024-09-23 22:26] VITALS: BP 115/85
[2024-09-24] VITALS (8 sets, daily range): BP systolic 91–124; BP diastolic 67–88; BMI 30.2
[2024-09-24 04:47] LABS: ALT (SGPT) 126 U/L (0-50); AST (SGOT) 212 U/L (17-59); Albumin 2.9 g/dl (3.5-5.0); Alkaline Phosphatase 398 U/L (38-126); Blood Urea Nitrogen 5 mg/dl (9-20); Calcium 7.9 mg/dl (8.4-10.2); Carbon Dioxide 25 mmol/L (22-30); Chloride 96 mmol/L (98-107); Direct Bilirubin 11.6 mg/dl (0.0-0.4); Estimated Creatinine Clearance 109 ml/min; Glucose 103 mg/dl (70-99); Lipase 614 U/L (23-300); Potassium 3.8 mmol/L (3.5-5.1); Sodium 130 mmol/L (135-145); Total Bilirubin 13.1 mg/dl (0.2-1.3); Total Protein 5.7 g/dl (6.3-8.2); eGFR > 60.00
[2024-09-24 04:59] LABS: Triglycerides 650 mg/dl (10-149)
[2024-09-24] MEDS: VITAMIN B1 100 MG PO ×2 (07:53→21:02)
[2024-09-24] MEDS: TRICOR 145 MG PO (07:53)
[2024-09-24] MEDS: NIASPAN TIME RELEASE 250 MG PO (07:54)
[2024-09-24] MEDS: FOLVITE 1 MG PO (07:54)
[2024-09-24] MEDS: LUMINAL 32.4 MG PO ×3 (07:54→21:58)
--- NOTE | 2024-09-24 08:12 | PTCARENOTE ---
Assumed care of pt at 0700. Pt is A/O x4, smiling and interacting., cooperative with care, states he got a good night's sleep. M/S level of care. MSAS ongoing, currently 0. See nursing shift assessment flowsheet for full physical assessment details.
[2024-09-24] MEDS: NOVOLOG FLEXPEN-LOW RESISTANCE SC ×3 (08:29→16:40)
[2024-09-24 08:40] LABS: Glucose - Point of Care 97 mg/dl (70-99)
--- NOTE | 2024-09-24 10:52 | W.PN.HOSP.TC ---
Today's Communication/Plan
-
complete phenobarb today
still hyponatremic, cont FR and check BMP, LFT in AM, if stable - discharge in AM
Assessment / Plan
Assessment / Plan
39yo M with PMHx of diverticulitis, alcohol abuse brought by his family 2/2 concern for elevated LFT and triglycerides on outpatient blood test. Managed for alcohol withdrawal and acute alcoholic hepatitis. Pancreatitis ruled out. Persistent
hyponatremia needs strict fluid restriction. LFT, triglycerides improving. Declined inpatient rehab.
A/P:
#Acute alcoholic pancreatitis unlikely (as per GI eval)
#Triglyceridemia 2/2 alcohol intake
#Bilirubinemia
#Transaminitis 2/2 acute alcoholic pancreatitis
#Elevated alk.phos 2/2 acute alcoholic pancreatitis
challenging situation with development of acute significant drop in sodium with IVF, but abd pain absent and triglycerides much improved - will avoid further hydration and cont to monitor
No gall stones on US, CBD WNL
Insulin drip, fenofibrate, niacyn, low fat diet. serial triglycerides
Counseled on alcohol cessation
IVF
GI consult
MELD 3.0 on admission - 18
follow LFT
CM for [facility], psychiatry
GI followed - hepatitis panel neg, cont f/u as outpatient
#Hypophosphatemia
#Hypocalcemia
#Hyponatremia
#hypomagnesemia
2/2 poor oral intake
serial electrolytes, replete as needed
Developed hypernatremia on hydration - start FR
Nephrology follows
Chest XR: No evidence of active cardiopulmonary disease
#Alcohol abuse with withdrawal
thiamine/folate
phenobarb taper
MSAS protocol
watch for DT
#Thrombocytopenia
2/2 alcohol BM suppression
follow CBC
DVT ppx hep
Full code
I have spent at least 39min reviewing the chart, test results, communication with consultants and direct patient care
Anticipated Discharge: Within 24 hours
Subjective/Interval History
-
Date of Service: September 24, 2024
Objective Data
-
Labs:
Laboratory Results
09/24/24
03:59
Sodium 130 L
Potassium 3.8
Chloride 96 L
Carbon Dioxide 25
BUN 5 L
Creatinine 0.5 L
Glucose 103 H
Calcium 7.9 L
Total Bilirubin 13.1 H
AST 212 H
ALT 126 H
Alkaline Phosphatase 398 H
Vital Signs:
Vital Signs
Temp Pulse Resp BP Pulse Ox
98.5 F 96 16 119/88 97
09/24/24 07:34 09/24/24 07:34 09/24/24 07:34 09/24/24 07:34 09/24/24 08:00
I&O
09/23/24 09/24/24 09/25/24
06:59 06:59 06:59
Intake Total 980 / 980 510 / 510
Output Total 1200 / 1200
Balance -220 / -220 510 / 510
Review of Systems
-
History Source: Patient
All other systems: Reviewed and negative
Physical Exam
-
General: No Apparent Distress
Respiratory: Clear to Auscultation
GI: Soft, Nontender and Nondistended
Neuro: Awake, Alert, Oriented and AO x 3
Psych: Calm
--- NOTE | 2024-09-24 12:27 | CM ---
CM following re: discharge planning.
Reviewed pt's chart, met with pt. Pt's sister Bethany and pt's mother at bedside.
According to pt is medically stable to be discharged today. Both pt and his family are aware.
MARY ANN Nolasco met with pt last week, pt expressed no interest in inpatient D&A Rehab and agreed with outpatient D&A rehab program.
CM met with pt and his family today and pt stated he has no interest either inpatient or outpatient D&A. Both pt's family and this CM tried to encourage the pt to accept outpatient D&A program and pt insisted he is not interested and pt asked to
honor his wishes. Pt made it very clear he has resources and he will use them if he feels he needs it.
D/C plan: per pt's strong request, home with family support and to follow up with [facility]/outpatient D&A rehab programs when pt is ready. Sister to transport at discharge.
[2024-09-24 13:18] LABS: Glucose - Point of Care 114 mg/dl (70-99)
[2024-09-24 16:52] LABS: Glucose - Point of Care 131 mg/dl (70-99)
[2024-09-24] MEDS: LOVENOX 40 MG SC (17:14)
--- NOTE | 2024-09-24 19:59 | PTCARENOTE ---
assessment as documented. [facility] level of care. vitals documented. report given to 3 shanna pt moving to 316-2.
[2024-09-24 21:28] LABS: Glucose - Point of Care 117 mg/dl (70-99)
[2024-09-24] MEDS: PEPCID 20 MG PO (21:57)
[2024-09-25 07:28] VITALS: BP 141/92
[2024-09-25 07:39] LABS: Glucose - Point of Care 89 mg/dl (70-99)
[2024-09-25] MEDS: NOVOLOG FLEXPEN-LOW RESISTANCE SC ×3 (07:42→16:42)
[2024-09-25] MEDS: FOLVITE 1 MG PO (07:43)
[2024-09-25] MEDS: NIASPAN TIME RELEASE 250 MG PO (07:43)
[2024-09-25] MEDS: TRICOR 145 MG PO (07:43)
[2024-09-25] MEDS: VITAMIN B1 100 MG PO ×2 (07:43→19:41)
[2024-09-25 08:27] LABS: ALT (SGPT) 95 U/L (0-50); AST (SGOT) 183 U/L (17-59); Alkaline Phosphatase 375 U/L (38-126); Blood Urea Nitrogen 3 mg/dl (9-20); Calcium 8.4 mg/dl (8.4-10.2); Carbon Dioxide 23 mmol/L (22-30); Chloride 93 mmol/L (98-107); Estimated Creatinine Clearance 109 ml/min; Glucose 91 mg/dl (70-99); Potassium 3.8 mmol/L (3.5-5.1); Sodium 127 mmol/L (135-145); Total Bilirubin 12.4 mg/dl (0.2-1.3); Total Protein 5.9 g/dl (6.3-8.2); eGFR > 60.00
[2024-09-25 10:21] LABS: Uric Acid 2.7 mg/dl (3.5-8.5)
--- NOTE | 2024-09-25 10:28 | W.PN.UPDATE ---
Update Note
Progress Note Update
Patient seen, chart reviewed, discussed with staff. Mr. Palacios tells me he feels well today however, he is frustrated that he is still in the hospital as he remains hyponatremic. He denies any W/D symptoms. Phenobarb taper ended yesterday. He
denies to me having an ETOH issue and can stop if he wants to like he did with soda when he was younger. He declines any IP or OP resources for ETOH tx.
Impression/Recommendation: ETOH use disorder, severe - Phenobarb taper completed, has not required nay Ativan since 09/20, declines further EtOH treatment.
Psych to sign off, reconsult with any new concerns.
--- NOTE | 2024-09-25 10:50 | W.PN.HOSP.TC ---
Addendum entered and electronically signed by Yaw Longoria MD 09/25/24 12:20:
low urine osm with low urine sodium - not consistent with SIADH at this time. possible transient ADH activity durign withdsrawal. Reasonable to start salt tabs as seen that kidneys attempting to preserve serum salt
Original Note:
Today's Communication/Plan
-
continue strict FR
Nephrology to reeval
Assessment / Plan
Assessment / Plan
39yo M with PMHx of diverticulitis, alcohol abuse brought by his family 2/2 concern for elevated LFT and triglycerides on outpatient blood test. Managed for alcohol withdrawal and acute alcoholic hepatitis. Pancreatitis ruled out. Persistent
hyponatremia needs strict fluid restriction. LFT, triglycerides improving. Declined inpatient rehab. As per psychiatry - with poor judjement and insight onto his medical condition. Developed recurrent hyponatremia
A/P:
#Hyponatremia
Possible SIADH as uric acid WNL
Developed hypernatremia on hydration - start FR
Nephrology follows - recall on 09/25/24
Chest XR: No evidence of active cardiopulmonary disease
#Acute alcoholic pancreatitis unlikely (as per GI eval)
#Triglyceridemia 2/2 alcohol intake
#Bilirubinemia
#Transaminitis 2/2 acute alcoholic pancreatitis
#Elevated alk.phos 2/2 acute alcoholic pancreatitis
challenging situation with development of acute significant drop in sodium with IVF, but abd pain absent and triglycerides much improved - will avoid further hydration and cont to monitor
No gall stones on US, CBD WNL
Insulin drip, fenofibrate, niacin, low fat diet. serial triglycerides
Counseled on alcohol cessation
IVF
GI consult
MELD 3.0 on admission - 18
follow LFT
CM for [facility], psychiatry
GI followed - hepatitis panel neg, cont f/u as outpatient
#Hypophosphatemia
#Hypocalcemia
#hypomagnesemia
2/2 poor oral intake
serial electrolytes, replete as needed
#Alcohol abuse with withdrawal
thiamine/folate
phenobarb taper
MSAS protocol
watch for DT
#Thrombocytopenia
2/2 alcohol BM suppression
follow CBC
DVT ppx hep
Full code
I have spent at least 39min reviewing the chart, test results, communication with consultants and direct patient care
Anticipated Discharge: 24 - 48 hours
Subjective/Interval History
-
Date of Service: September 25, 2024
Objective Data
-
Labs:
Laboratory Results
09/25/24
06:54
Sodium 127 L
Potassium 3.8
Chloride 93 L
Carbon Dioxide 23
BUN 3 L
Creatinine 0.5 L
Glucose 91
Calcium 8.4
Total Bilirubin 12.4 H
AST 183 H
ALT 95 H
Alkaline Phosphatase 375 H
Vital Signs:
Vital Signs
Temp Pulse Resp BP Pulse Ox
97.8 F 87 17 141/92 97
09/25/24 07:28 09/25/24 07:28 09/25/24 07:28 09/25/24 07:28 09/25/24 07:28
I&O
09/24/24 09/25/24 09/26/24
06:59 06:59 06:59
Intake Total 510 / 510 480 / 480
Balance 510 / 510 480 / 480
Review of Systems
-
History Source: Patient
All other systems: Reviewed and negative
Physical Exam
-
HEENT: Other (yellow conjuctiva)
Respiratory: Clear to Auscultation
Cardiac: Regular Rhythm
GI: Soft, Nontender and Nondistended
Skin: Jaundice
Neuro: Awake, Alert, Oriented and AO x 3
[2024-09-25 11:46] LABS: Osmolality Urine 103 mOsm/kg (300-900)
[2024-09-25] MEDS: XANAX 1 MG PO (11:50)
[2024-09-25 11:56] LABS: Glucose - Point of Care 118 mg/dl (70-99)
[2024-09-25 12:14] LABS: Urine Sodium 12 mmol/L (30-90); Urine Uric Acid 19.6 mg/dl
[2024-09-25] MEDS: SODIUM CHLORIDE 1 GRAM PO ×2 (13:20→19:41)
[2024-09-25 14:59] VITALS: BP 94/56
[2024-09-25 16:34] LABS: Glucose - Point of Care 118 mg/dl (70-99)
[2024-09-25] MEDS: LOVENOX 40 MG SC (17:58)
[2024-09-25 21:07] LABS: Glucose - Point of Care 144 mg/dl (70-99)
[2024-09-25] MEDS: PEPCID 20 MG PO (21:25)
[2024-09-25 23:00] VITALS: BP 108/74
[2024-09-26 07:06] LABS: ALT (SGPT) 74 U/L (0-50); AST (SGOT) 147 U/L (17-59); Albumin 2.8 g/dl (3.5-5.0); Alkaline Phosphatase 320 U/L (38-126); Blood Urea Nitrogen 7 mg/dl (9-20); Calcium 8.4 mg/dl (8.4-10.2); Carbon Dioxide 25 mmol/L (22-30); Chloride 101 mmol/L (98-107); Direct Bilirubin 8.4 mg/dl (0.0-0.4); Estimated Creatinine Clearance 109 ml/min; Glucose 101 mg/dl (70-99); Potassium 3.5 mmol/L (3.5-5.1); Sodium 135 mmol/L (135-145); Total Bilirubin 9.7 mg/dl (0.2-1.3); Total Protein 5.7 g/dl (6.3-8.2); eGFR > 60.00
[2024-09-26 07:34] VITALS: BP 98/61
[2024-09-26 07:41] LABS: Glucose - Point of Care 93 mg/dl (70-99)
[2024-09-26] MEDS: NOVOLOG FLEXPEN-LOW RESISTANCE SC ×2 (07:59→11:54)
[2024-09-26] MEDS: NIASPAN TIME RELEASE 250 MG PO (08:01)
[2024-09-26] MEDS: SODIUM CHLORIDE 1 GRAM PO (08:01)
[2024-09-26] MEDS: TRICOR 145 MG PO (08:01)
[2024-09-26] MEDS: FOLVITE 1 MG PO (08:01)
[2024-09-26] MEDS: VITAMIN B1 100 MG PO (08:05)
[2024-09-26 11:36] LABS: Glucose - Point of Care 142 mg/dl (70-99)
--- NOTE | 2024-09-26 12:06 | W.DCSUMMARY ---
Discharge Summary
Discharge Data
Date of Admission: 09/19/24
Date of Discharge: 09/26/24
-
Pending Results: No
Hospital Course
Mr. Palacios is a 39-year-old male with a medical history of alcohol abuse, bipolar disorder (not on medications), and GERD who presented from PCP due to severely elevated lipids and LFTs. According to family, his p.o. intake has been poor recently
and he had been throwing up frequently. He also had approximately 25 pound weight loss in the previous 3 to 4 months. He reports drinking approximately 5 shots of high proof liquor nightly. On admission he was hyponatremic with a serum sodium of
131, LFTs were severely deranged with a T. bili 7.8/ D bili of 7.1, AST 737/ALT 328/alk phos 385, triglycerides greater than 2000, lipase 500. Imaging showed severe fatty alteration of his liver with hepatomegaly, and possible mild or early acute
pancreatitis with no evidence of biliary obstruction or pancreatic masses. No clear imaging evidence of cirrhosis. He was treated with phenobarbital taper to avoid acute alcohol withdrawal and started on thiamine and folate. He was managed
initially in the ICU while on insulin drip for hypertriglyceridemia which improved. He was later downgraded to the general medical floors and continued on treatment with fenofibrate and niacin. His liver function tests showed improvement
throughout his admission. He will need to remain on a low-fat diet and abstain from alcohol use. His hepatitis panel was negative. He was followed by the gastroenterology while inpatient and has been instructed to follow-up GI in the outpatient
setting after discharge (Dr. Argueta at [facility]). His hyponatremia improved with fluid resuscitation, improved p.o. intake, and initiation of salt tablets. Urine studies showed no evidence of SIADH. His salt tablets will be continued for a few
days after discharge, after which he will need to follow-up with his PCP for repeat lab work and medication adjustments as needed. During his hospitalization he was evaluated by psychiatry who recommended drug and alcohol rehab, however patient
declined treatment at this time. Discussed plan of care and importance of close outpatient follow-up with the patient and his family who are in agreement with the plan.
Discharge Plan
-
Patient Disposition: Home (Routine Discharge)
Discharge Diagnosis/Procedures: Acute alcoholic hepatitis, hypertriglyceridemia induced pancreatitis, hyponatremia
Diet: Low Fat and Low Cholesterol
Activity: No restrictions
Blood Work: Follow-up with PCP and GI for repeat blood work to check liver function and lipids
Activity Restrictions/Additional Instructions:
Mr. Palacios is a 39-year-old male with a medical history of alcohol abuse, bipolar disorder (not on medications), and GERD who presented from PCP due to severely elevated lipids and LFTs. According to family, his p.o. intake has been poor recently
and he had been throwing up frequently. He also had approximately 25 pound weight loss in the previous 3 to 4 months. He reports drinking approximately 5 shots of high proof liquor nightly. On admission he was hyponatremic with a serum sodium of
131, LFTs were severely deranged with a T. bili 7.8/ D bili of 7.1, AST 737/ALT 328/alk phos 385, triglycerides greater than 2000, lipase 500. Imaging showed severe fatty alteration of his liver with hepatomegaly, and possible mild or early acute
pancreatitis with no evidence of biliary obstruction or pancreatic masses. No clear imaging evidence of cirrhosis. He was treated with phenobarbital taper to avoid acute alcohol withdrawal and started on thiamine and folate. He was managed
initially in the ICU while on insulin drip for hypertriglyceridemia which improved. He was later downgraded to the general medical floors and continued on treatment with fenofibrate and niacin. His liver function tests showed improvement
throughout his admission. He will need to remain on a low-fat diet and abstain from alcohol use. His hepatitis panel was negative. He was followed by the gastroenterology while inpatient and has been instructed to follow-up GI in the outpatient
setting after discharge (Dr. Argueta at [facility]). His hyponatremia improved with fluid resuscitation, improved p.o. intake, and initiation of salt tablets. Urine studies showed no evidence of SIADH. His salt tablets will be continued for a few
days after discharge, after which he will need to follow-up with his PCP for repeat lab work and medication adjustments as needed. During his hospitalization he was evaluated by psychiatry who recommended drug and alcohol rehab, however patient
declined treatment at this time. Discussed plan of care and importance of close outpatient follow-up with the patient and his family who are in agreement with the plan.
Referrals:
Stephen Kaba MD [Non-Admitting Privileges] -
Diane Grimes DO [Family Provider] -
Prescriptions:
New
thiamine HCl (vitamin B1) 100 mg Tablet
100 mg PO BID 30 Days Qty: 60 0RF
niacin 250 mg Tablet Extended Release
250 mg PO DAILY 30 Days Qty: 30 0RF
folic acid 1 mg Tablet
1 mg PO DAILY 30 Days Qty: 30 0RF
sodium chloride 1,000 mg Tablet,Soluble
1,000 mg PO BID 3 Days Qty: 6 0RF
fenofibrate nanocrystallized 145 mg Tablet
145 mg PO DAILY 30 Days Qty: 30 0RF
Continued
famotidine 20 mg Tablet
20 mg PO BIDPRN PRN (Reason: gerd)
naproxen sodium [Aleve] 220 mg Tablet
440 mg PO BIDPRN PRN (Reason: mild pain)
Discharge Orders:
Discharge Patient (As Directed); Ordered 09/26/24
Ordered By: Flash Saleh
Discharge Date and Time
Print Language: MALTESE
--- NOTE | 2024-09-26 12:06 | W.PN.HOSP.TC ---
Today's Communication/Plan
-
Discharge to home today with family with close outpatient follow-up with PCP and GI
Assessment / Plan
Assessment / Plan
Mr. Palacios is a 39-year-old male with a medical history of alcohol abuse, bipolar disorder (not on medications), and GERD who presented from PCP due to severely elevated lipids and LFTs. According to family, his p.o. intake has been poor recently
and he had been throwing up frequently. He also had approximately 25 pound weight loss in the previous 3 to 4 months. He reports drinking approximately 5 shots of high proof liquor nightly. On admission he was hyponatremic with a serum sodium of
131, LFTs were severely deranged with a T. bili 7.8/ D bili of 7.1, AST 737/ALT 328/alk phos 385, triglycerides greater than 2000, lipase 500. Imaging showed severe fatty alteration of his liver with hepatomegaly, and possible mild or early acute
pancreatitis with no evidence of biliary obstruction or pancreatic masses. No clear imaging evidence of cirrhosis. He was treated with phenobarbital taper to avoid acute alcohol withdrawal and started on thiamine and folate. He was managed
initially in the ICU while on insulin drip for hypertriglyceridemia which improved. He was later downgraded to the general medical floors and continued on treatment with fenofibrate and niacin. His liver function tests showed improvement
throughout his admission. He will need to remain on a low-fat diet and abstain from alcohol use. His hepatitis panel was negative. He was followed by the gastroenterology while inpatient and has been instructed to follow-up GI in the outpatient
setting after discharge (Dr. Argueta at [facility]). His hyponatremia improved with fluid resuscitation, improved p.o. intake, and initiation of salt tablets. Urine studies showed no evidence of SIADH. His salt tablets will be continued for a few
days after discharge, after which he will need to follow-up with his PCP for repeat lab work and medication adjustments as needed. During his hospitalization he was evaluated by psychiatry who recommended drug and alcohol rehab, however patient
declined treatment at this time. Discussed plan of care and importance of close outpatient follow-up with the patient and his family who are in agreement with the plan.
A/P:
#Hyponatremia
-Improved with p.o. intake, fluid resuscitation, and salt tablets
-Will continue short course of salt tablets, will need outpatient follow-up for repeat labs
-No evidence of SIADH on urine studies
-Chest XR: No evidence of active cardiopulmonary disease
#Acute alcoholic hepatitis
-Continue abstinence from alcohol
-LFTs slowly improving
-Will need close outpatient follow-up with GI
-Hepatitis panel negative
-Imaging shows no evidence of biliary obstruction
#Acute pancreatitis:
-Suspect secondary to severe hypertriglyceridemia, possibly complicated by alcohol abuse
-Resolved
-Continue to treat underlying hypertriglyceridemia
#Hypertriglyceridemia:
-Fenofibrate and niacin
-Close outpatient follow-up for repeat labs and medication adjustments as needed
#Alcohol abuse:
-Patient declines drug and alcohol rehab at this time
-Continue to encourage abstinence from alcohol use
-Continue thiamine and folate
-Completed phenobarbital taper, no signs of acute withdrawal symptoms
#Thrombocytopenia
2/2 alcohol BM suppression
follow CBC repeat labs in outpatient setting
DVT ppx hep
Full code
I have spent at least 39min reviewing the chart, test results, communication with consultants and direct patient care
Anticipated Discharge: Today
Subjective/Interval History
-
Date of Service: September 26, 2024
Mr. Palacios was seen and examined at bedside this morning. No acute distress and no complaints. He feels well and is eager to go home.
Objective Data
-
Labs:
Laboratory Results
09/26/24
06:16
Sodium 135 D
Potassium 3.5
Chloride 101
Carbon Dioxide 25
BUN 7 L
Creatinine 0.6 L
Glucose 101 H
Calcium 8.4
Total Bilirubin 9.7 H
AST 147 H
ALT 74 H
Alkaline Phosphatase 320 H
Vital Signs:
Vital Signs
Temp Pulse Resp BP Pulse Ox
99.4 F 83 17 98/61 97
09/26/24 07:34 09/26/24 07:34 09/26/24 07:34 09/26/24 07:34 09/26/24 07:34
I&O
09/25/24 09/26/24 09/27/24
06:59 06:59 06:59
Intake Total 480 / 480 1080 / 1080
Balance 480 / 480 1080 / 1080
Review of Systems
-
History Source: Patient
All other systems: Reviewed and negative
Physical Exam
-
General: No Apparent Distress and Comfortable
HEENT: Normocephalic and Atraumatic
Respiratory: Clear to Auscultation and Non Labored Respirations
Cardiac: Regular Rhythm and S1/S2
GI: Soft and Nontender
Genito-urinary: No Costovertebral Tender
Musculoskeletal: No Cyanosis and No Edema
Skin: Warm and Dry
Neuro: Awake and Alert
Psych: Calm
Data Reviewed
-
CT Scan: Report Reviewed by me
Ultrasound: Report Reviewed by me
Labs: Labs Reviewed by me, Discussed with Patient and Discussed with Family
[2024-09-26 13:26] VITALS: BP 134/92
== END 2024-09-26 13:58 | disposition home or self-care (01) | DRG 896 ==
LOC: 3 WEST ACU 22:31
PROVIDERS: Internal Medicine; Nurse Practitioner Adult Health; Nurse Practitioner Family; Specialist; Student in an Organized Health Care Education/Training Program; ADMITTING PHYSICIAN Internal Medicine; ATTENDING PHYSICIAN Internal Medicine; CONSULT PHYSICIAN Internal Medicine Gastroenterology; EMERGENCY PHYSICIAN Emergency Medicine; FAMILY PHYSICIAN Family Medicine; OTHER PHYSICIAN Internal Medicine; OTHER PHYSICIAN Psychiatry & Neurology Psychiatry; OTHER PHYSICIAN Specialist
DX: F10.239 Alcohol dependence with withdrawal, unspecified (principal); K85.90 Acute pancreatitis without necrosis or infection, unspecified; E87.1 Hypo-osmolality and hyponatremia; F84.0 Autistic disorder; K70.10 Alcoholic hepatitis without ascites; E78.1 Pure hyperglyceridemia; D69.6 Thrombocytopenia, unspecified
CPT/HCPCS: 71045; 74177; 76700; 80048; 80053; 80061; 80306; 80307; 81003; 82077; 82248; 82570; 82962; 83036; 83690; 83721; 83735; 83930; 83935; 84100; 84300; 84478; 84550; 85025; 85610; 85730; 86704; 86709; 86803; 87340; 93306; 96374; 96375; 99285; Q9967